=== PATIENT | female | born 1985 | race Caucasian/White ===

== ENCOUNTER 2016-10-28 04:16 | Emergency (ER) | payer OTHER ==
[2016-10-28 04:25] VITALS: TEMP 97.3
[2016-10-28] MEDS ORDERED: SUMAtriptan SUCCINATE 6 MG/0.5 ML VIAL SQ STA (04:41)
--- NOTE | 2016-10-28 04:44 | ED ---
General Adult HPI - General Chief complaint: Neuro Symptoms/Deficit Stated complaint: migraine Time Seen by Provider: 10/28/16 04:30 Source: patient, RN notes reviewed Mode of arrival: ambulatory Limitations: no limitations - History of Present Illness Initial comments: This is a 31-year-old female who presents with the onset about 24 hours ago of a severe frontal and green-type headache she has had these in the past he states is severe sternal aching and sharp she has photophobia with it she complains some nausea no vomiting at this time. She tried her home medication without success. She drove herself here for evaluation. She is pending a referral to a neurologist. She states the headache 7 more frequent over the past 2 months. She denies any fevers chills or sweats she did recently just quit smoking except she does admit to having 2 cigarettes today. No relationship to smoking of the headaches. No trauma reported no earache sore throat rhinorrhea no neck stiffness. No focal loss of function. She states she 's never tried Imitrex before. - Related Data Home Medications Medication Instructions Recorded Confirmed ALPRAZolam [Xanax] 0.5 mg PO QID PRN 03/31/14 10/28/16 ARIPiprazole [Abilify] 15 mg PO DAILY 08/01/14 10/28/16 Hydrocodone/Acetaminophen 1 tab PO QID PRN 08/13/14 10/28/16 [Hydrocodon-Acetaminoph 7.5-325] Omeprazole [PriLOSEC] 20 mg PO BID PRN 08/13/14 10/28/16 Topiramate [Topamax] 25 mg PO DAILY 10/26/15 10/28/16 Citalopram Hydrobromide [CeleXA] 30 mg PO DAILY 01/30/16 10/28/16 Cyclobenzaprine [Flexeril] 10 mg PO TID 07/01/16 10/28/16 Albuterol Inhaler [Ventolin Hfa 1 - 2 puff INHALATION RT-Q6H PRN 09/11/16 Inhaler] Albuterol Nebulized [Ventolin 2.5 mg INHALATION RT-Q6H PRN 09/11/16 10/28/16 Nebulized] Ibuprofen [Motrin] 800 mg PO TID PRN 09/12/16 10/28/16 diphenhydrAMINE HCL [Benadryl] 50 mg PO BID PRN 09/12/16 10/28/16 Previous Rx's Medication Instructions Recorded Butalb/Acetaminophen/Caffeine 1 - 2 cap PO Q4HR #15 cap 09/12/16 [Fioricet 50-300-40 mg Capsule] SUMAtriptan SUCCINATE [Imitrex] 25 mg PO ONCE PRN #4 tablet 10/28/16 Allergies Allergy/AdvReac Type Severity Reaction Status Date / Time bupropion HCl AdvReac Nausea & Verified 10/28/16 04:25 [From Wellbutrin] Vomiting prestique Allergy Confusion Uncoded 10/28/16 04:25 Review of Systems ROS Statement: Those systems with pertinent positive or pertinent negative responses have been documented in the HPI. ROS Other: All systems not noted in ROS Statement are negative. Past Medical History Past Medical History: Asthma Additional Past Medical History / Comment(s): OVARIAN CYSTS, migraines, back pain History of Any Multi-Drug Resistant Organisms: None Reported Past Surgical History: Section, Tubal Ligation Past Psychological History: Anxiety, Depression Smoking Status: Former smoker Past Alcohol Use History: None Reported Past Drug Use History: None Reported General Exam - General Exam Comments Initial Comments: This is a well-developed well-nourished awake alert oriented 3 female Limitations: no limitations General appearance: alert, in no apparent distress Head exam: Present: atraumatic, normocephalic, normal inspection Eye exam: Present: normal appearance, PERRL, EOMI. Absent: scleral icterus, conjunctival injection, periorbital swelling ENT exam: Present: normal exam, mucous membranes moist Neck exam: Present: normal inspection. Absent: tenderness, meningismus, lymphadenopathy Respiratory exam: Present: normal lung sounds bilaterally. Absent: respiratory distress, wheezes, rales, rhonchi, stridor Cardiovascular Exam: Present: regular rate, normal rhythm, normal heart sounds. Absent: systolic murmur, diastolic murmur, rubs, gallop, clicks GI/Abdominal exam: Present: soft, normal bowel sounds. Absent: distended, tenderness, guarding, rebound, rigid Extremities exam: Present: normal inspection, full ROM, normal capillary refill. Absent: tenderness, pedal edema, joint swelling, calf tenderness Back exam: Present: normal inspection Neurological exam: Present: alert, oriented X3, CN II-XII intact Psychiatric exam: Present: normal affect, normal mood Skin exam: Present: warm, dry, intact, normal color. Absent: rash Course Vital Signs 10/28/16 04:21 Temperature 97.3 F L Pulse Rate 98 Respiratory 18 Rate Blood Pressure 140/84 O2 Sat by Pulse 99 Oximetry Medical Decision Making - Medical Decision Making The patient initially much improved with almost complete resolution of her headache. She would like to go home she'll be discharged I will start her on a prescription for Imitrex. She is a follow-up with her doctor and return when necessary Disposition Clinical Impression: Migraine, Headache Disposition: HOME SELF-CARE Condition: Good Instructions: Migraine Headache (ED) Prescriptions: SUMAtriptan SUCCINATE [Imitrex] 25 mg PO ONCE PRN #4 tablet PRN Reason: Headache
[2016-10-28 06:07] VITALS: BP 130/80; PULSE 70; RESP 16
== END 2016-10-28 06:03 | disposition home or self-care (01) ==
LOC: EC 04:16
DX: G43.909 Migraine, unspecified, not intractable, without status migrainosus (principal); F41.9 Anxiety disorder, unspecified; F32.9 Major depressive disorder, single episode, unspecified; Z87.891 Personal history of nicotine dependence; Z79.899 Other long term (current) drug therapy; Z88.8 Allergy status to other drugs, medicaments and biological substances
CPT/HCPCS: 99283; J3030

== ENCOUNTER 2016-11-14 13:40 | Emergency (ER) | payer OTHER ==
[2016-11-14] MEDS ORDERED: SODIUM CHLORIDE 0.9% 1,000 ML IV STA (15:30)
[2016-11-14] MEDS ORDERED: diphenhydrAMINE 50 MG/ML 1 ML VIAL IVP STA (15:30)
[2016-11-14] MEDS ORDERED: METOCLOPRAMIDE 5 MG/ML 2 ML VIAL IVP STA (15:30)
--- NOTE | 2016-11-14 15:33 | ED ---
Headache HPI - General Chief Complaint: Headache Stated Complaint: migraines Time Seen by Provider: 11/14/16 15:18 Source: RN notes reviewed Mode of arrival: ambulatory Limitations: no limitations - History of Present Illness Initial Comments: 31-year-old female presents to the emergency Department chief complaint of headache. Patient has a long history of migraines and been having migraines for the past 6 months more frequently but has had to light. Patient states she' s been on all the different migraine medications do not seem to be helping. Patient states that she currently has no pain with a neurologist to further evaluate headaches. Patient states she has had nausea with the headache. Patient states that she took her medications might help with the headache come back. Patient states the throbbing type pain. Patient stated understanding headache. Patient states that no other symptoms or no change in her symptoms. Patient denies any recent fever, chills, shortness of breath, chest pain, back pain, abdominal pain, nausea vomiting, numbness or tingling, dysuria or hematuria, constipation or diarrhea, visual changes, or any other current symptoms. - Related Data Home Medications Medication Instructions Recorded Confirmed ALPRAZolam [Xanax] 0.5 mg PO QID PRN 03/31/14 11/14/16 ARIPiprazole [Abilify] 15 mg PO DAILY 08/01/14 11/14/16 Hydrocodone/Acetaminophen 1 tab PO QID PRN 08/13/14 11/14/16 [Hydrocodon-Acetaminoph 7.5-325] Omeprazole [PriLOSEC] 20 mg PO BID PRN 08/13/14 11/14/16 Topiramate [Topamax] 25 mg PO DAILY 10/26/15 11/14/16 Citalopram Hydrobromide [CeleXA] 30 mg PO DAILY 01/30/16 11/14/16 Cyclobenzaprine [Flexeril] 10 mg PO TID PRN 07/01/16 11/14/16 Albuterol Inhaler [Ventolin Hfa 2 puff INHALATION RT-Q6H PRN 09/11/16 11/14/16 Inhaler] Albuterol Nebulized [Ventolin 2.5 mg INHALATION RT-Q6H PRN 09/11/16 11/14/16 Nebulized] Ibuprofen [Motrin] 800 mg PO TID PRN 09/12/16 11/14/16 diphenhydrAMINE HCL [Benadryl] 50 mg PO BID PRN 09/12/16 11/14/16 SUMAtriptan SUCCINATE [Imitrex] 25 mg PO BID PRN 11/14/16 11/14/16 Allergies Allergy/AdvReac Type Severity Reaction Status Date / Time bupropion HCl AdvReac Nausea & Verified 11/14/16 15:46 [From Wellbutrin] Vomiting desvenlafaxine [From Pristiq] AdvReac Confusion Verified 11/14/16 15:46 Review of Systems ROS Statement: Those systems with pertinent positive or pertinent negative responses have been documented in the HPI. ROS Other: All systems not noted in ROS Statement are negative. Past Medical History Past Medical History: Asthma Additional Past Medical History / Comment(s): OVARIAN CYSTS, migraines, back pain History of Any Multi-Drug Resistant Organisms: None Reported Past Surgical History: Section, Tubal Ligation Past Psychological History: Anxiety, Depression Smoking Status: Former smoker Past Alcohol Use History: None Reported Past Drug Use History: None Reported General Exam - General Exam Comments Initial Comments: General: The patient is awake and alert, in no distress, and does not appear acutely ill. Eye: Pupils are equal, round and reactive to light, extra-ocular movements are intact; there is normal conjunctiva bilaterally. No signs of icterus. Ears, nose, mouth and throat: There are moist mucous membranes and no oral lesions. Neck: The neck is supple, there is no tenderness. Cardiovascular: There is a regular rate and rhythm. No murmur, rub or gallop is appreciated. Respiratory: Lungs are clear to auscultation, respirations are non-labored, breath sounds are equal. No wheezes, stridor, rales, or rhonchi. Gastrointestinal: Soft, non-distended, non-tender abdomen without masses or organomegaly noted. There is no rebound or guarding present. No CVA tenderness. Bowel sounds are unremarkable. Back: There is no tenderness to palpation in the midline. There is no obvious deformity. No rashes noted. Musculoskeletal: Normal ROM, no tenderness, There is no pedal edema. There is no calf tenderness or swelling. Sensation intact. Pulses equal bilaterally 2+. Neurological: CN II-XII intact, There are no obvious motor or sensory deficits. Coordination appears grossly intact. Speech is normal. Skin: Skin is warm and dry and no rashes or lesions are noted. Psychiatric: Cooperative, appropriate mood & affect, normal judgment. Limitations: no limitations Course Vital Signs 11/14/16 14:30 Temperature 98.2 F Pulse Rate 89 Respiratory 18 Rate Blood Pressure 123/79 O2 Sat by Pulse 98 Oximetry - Reevaluation(s) Reevaluation #1: 11/14/16 17:12 Patient states that she is feeling better at this time. Patient states she does feel comfortable going home. Medical Decision Making - Medical Decision Making 31-year-old female presents emergency Department chief complaint of headache. Patient has a long history of headaches. Patient's previous studies were reviewed with do show a normal CT in the patient's past. This time we discussed continued follow-up with neurology. We did give her medication here that did help with headache. We discussed continuing to use her home medications. We discussed return parameters. Patient states that she understood all the questions have been answered. She will be discharged home. Disposition Clinical Impression: Headache Disposition: HOME SELF-CARE Condition: Stable Instructions: Acute Headache (ED) Additional Instructions: Please use medication as discussed. Please follow up with family doctor if symptoms have not improved over the next two days. Please return to the emergency room if your symptoms increase or worsen or for any other concerns. Referrals: Breanna Mcguire MD [Primary Care Provider] - 1-2 days
[2016-11-14] MEDS ORDERED: KETOROLAC 30 MG/ML 1 ML VIAL IVP STA (16:26)
[2016-11-14 17:31] VITALS: BP 110/70; PULSE 80; RESP 16; TEMP 98
== END 2016-11-14 17:35 | disposition home or self-care (01) ==
LOC: EC 13:40
DX: R51 Headache (principal); F32.9 Major depressive disorder, single episode, unspecified; F41.9 Anxiety disorder, unspecified; Z87.891 Personal history of nicotine dependence; Z88.8 Allergy status to other drugs, medicaments and biological substances; Z79.899 Other long term (current) drug therapy; Z86.69 Personal history of other diseases of the nervous system and sense organs
CPT/HCPCS: 99283; 96374; 96375 ×2; 96361; J1200; J2765; J1885

== ENCOUNTER → 2017-01-03 | Outpatient (CLI) | payer OTHER ==
[2017-01-03 08:56] LABS: Basophils # (A) 0.1 k/uL (0-0.2); Basophils % (A) 1 %; CH 29.6; CHCM 33.3; Eosinophils # (A) 0.3 k/uL (0-0.7); Eosinophils % (A) 3 %; HCT 40.6 % (34.0-46.0); HDW 2.74; HGB 13.8 gm/dL (11.4-16.0); Luc # (Auto) 0.32; Luc % (Auto) 3; Lymphocytes # (A) 4.4 k/uL (1.0-4.8); Lymphocytes % (A) 41 %; MCH 30.3 pg (25.0-35.0); MCHC 33.9 g/dL (31.0-37.0); MCV 89.4 fL (80.0-100.0); Mean Platelet Volume 7.7; Monocytes # (A) 0.6 k/uL (0-1.0); Monocytes % (A) 6 %; Neutrophils # (A) 4.9 k/uL (1.3-7.7); Neutrophils % (A) 46 %; RBC 4.55 m/uL (3.80-5.40); RDW 12.6 % (11.5-15.5); WBC 10.6 k/uL (3.8-10.6); WBC (Perox) 10.64
[2017-01-03 12:20] LABS: ALT 29 U/L (9-52); AST 19 U/L (14-36); Alkaline Phosphatase 71 U/L (38-126); Anion Gap 11 mmol/L; Blood Urea Nitrogen 11 mg/dL (7-17); Calcium 9.6 mg/dL (8.4-10.2); Carbon Dioxide 27 mmol/L (22-30); Chloride 102 mmol/L (98-107); Glucose 83 mg/dL (74-99); Iron 46 ug/dL (37-170); Non-African American GFR(MDRD) >60 (>60 ml/min/1.73 sqM); Potassium 4.1 mmol/L (3.5-5.1); Sodium 140 mmol/L (137-145); Total Bilirubin 0.7 mg/dL (0.2-1.3); Total Protein 7.2 g/dL (6.3-8.2)
[2017-01-03 12:31] LABS: % Iron Saturation 14.6 % (20-50); Total Iron Binding Capacity 314 ug/dL (265-497)
[2017-01-03 13:10] LABS: Vitamin B12 257 pg/mL (239-931)
== END | disposition home or self-care (01) ==
LOC: LABWHC1 08:15
PROVIDERS: ATTEND Internal Medicine
DX: R53.83 Other fatigue (principal); R51 Headache; F41.9 Anxiety disorder, unspecified; R63.5 Abnormal weight gain
CPT/HCPCS: 36415; 80053; 82306; 82607; 83540; 83550; 84439; 84443; 84481; 85025

== ENCOUNTER 2017-04-11 09:36 | Emergency (ER) | payer OTHER ==
[2017-04-11 09:42] VITALS: TEMP 98.1
--- NOTE | 2017-04-11 09:58 | ED ---
General Adult HPI - General Chief complaint: Headache Stated complaint: migraine Time Seen by Provider: 04/11/17 09:43 Source: patient, RN notes reviewed Mode of arrival: ambulatory Limitations: no limitations - History of Present Illness Initial comments: 31-year-old female who presents emergency room today with a chief complaint of migraine headache. She states she usually takes Imitrex for her headaches but she currently is in between insurance and has been unable to order picker her prescription. She states when she woke up this morning shortly thereafter proxy 5:30 AM she began having migraine headache" located to the right side of her head. Admits to photosensitivity. Admits to symptoms of nausea vomiting. States all symptoms are consistent with migraine headaches that she's had in the past. She denies any new symptoms or complaints. Patient denies any recent fever, chills, shortness of breath, chest pain, back pain, abdominal pain, nausea or vomiting, numbness or tingling, dysuria or hematuria, constipation or diarrhea, headaches or visual changes, or any other complaints. - Related Data Home Medications Medication Instructions Recorded Confirmed ALPRAZolam [Xanax] 0.5 mg PO QID PRN 03/31/14 11/14/16 ARIPiprazole [Abilify] 15 mg PO DAILY 08/01/14 11/14/16 Hydrocodone/Acetaminophen 1 tab PO QID PRN 08/13/14 11/14/16 [Hydrocodon-Acetaminoph 7.5-325] Omeprazole [PriLOSEC] 20 mg PO BID PRN 08/13/14 11/14/16 Topiramate [Topamax] 25 mg PO DAILY 10/26/15 11/14/16 Citalopram Hydrobromide [CeleXA] 30 mg PO DAILY 01/30/16 11/14/16 Cyclobenzaprine [Flexeril] 10 mg PO TID PRN 07/01/16 11/14/16 Albuterol Inhaler [Ventolin Hfa 2 puff INHALATION RT-Q6H PRN 09/11/16 11/14/16 Inhaler] Albuterol Nebulized [Ventolin 2.5 mg INHALATION RT-Q6H PRN 09/11/16 11/14/16 Nebulized] Ibuprofen [Motrin] 800 mg PO TID PRN 09/12/16 11/14/16 diphenhydrAMINE HCL [Benadryl] 50 mg PO BID PRN 09/12/16 11/14/16 SUMAtriptan SUCCINATE [Imitrex] 25 mg PO BID PRN 11/14/16 11/14/16 Previous Rx's Medication Instructions Recorded Ondansetron Odt [Zofran ODT] 4 mg PO Q8HR PRN #20 tab 04/11/17 Allergies Allergy/AdvReac Type Severity Reaction Status Date / Time bupropion HCl AdvReac Nausea & Verified 04/11/17 09:42 [From Wellbutrin] Vomiting desvenlafaxine [From Pristiq] AdvReac Confusion Verified 04/11/17 09:42 Review of Systems ROS Statement: Those systems with pertinent positive or pertinent negative responses have been documented in the HPI. ROS Other: All systems not noted in ROS Statement are negative. Past Medical History Past Medical History: Asthma Additional Past Medical History / Comment(s): OVARIAN CYSTS, migraines, back pain History of Any Multi-Drug Resistant Organisms: None Reported Past Surgical History: Section, Tubal Ligation Past Psychological History: Anxiety, Depression Smoking Status: Light tobacco smoker Past Alcohol Use History: None Reported Past Drug Use History: None Reported General Exam - General Exam Comments Initial Comments: General: The patient is awake and alert, in no distress, and does not appear acutely ill. Eye: Pupils are equal, round and reactive to light, extra-ocular movements are intact. No nystagmus. There is normal conjunctiva bilaterally. No signs of icterus. Ears, nose, mouth and throat: There are moist mucous membranes and no oral lesions. Neck: The neck is supple, there is no tenderness or JVD. Cardiovascular: There is a regular rate and rhythm. No murmur, rub or gallop is appreciated. Respiratory: Lungs are clear to auscultation, respirations are non-labored, breath sounds are equal. No wheezes, stridor, rales, or rhonchi. Gastrointestinal: Soft, non-distended, non-tender abdomen without masses or organomegaly noted. There is no rebound or guarding present. No CVA tenderness. Bowel sounds are unremarkable. Musculoskeletal: Normal ROM, no tenderness. Strength 5/5. Sensation intact. Pulses equal bilaterally 2+. Neurological: A&O x 3. CN II-XII intact, There are no obvious motor or sensory deficits. Coordination appears grossly intact. Speech is normal. Skin: Skin is warm and dry and no rashes or lesions are noted. Psychiatric: Cooperative, appropriate mood & affect, normal judgment. Limitations: no limitations Course Vital Signs 04/11/17 09:39 Temperature 98.1 F Pulse Rate 82 Respiratory 15 Rate Blood Pressure 132/72 O2 Sat by Pulse 98 Oximetry Medical Decision Making - Medical Decision Making Treatment options discussed with patient about possible IV versus oral medication. She states that Imitrex usually works well for her. She'll be given a dose here in the emergency room discharged home advised to order picker her prescription when she can. Advised return if symptoms increase or worsen or for any other concerns. She states understanding and is in agreement. Disposition Clinical Impression: Migraine Disposition: HOME SELF-CARE Condition: Good Instructions: Migraine Headache (ED) Additional Instructions: Please use medication as discussed. Please follow-up with family doctor in the next 2 days of symptoms have not improved. Please return to emergency room if the symptoms increase or worsen or for any other concerns. Prescriptions: Ondansetron Odt [Zofran ODT] 4 mg PO Q8HR PRN #20 tab PRN Reason: Nausea Referrals: Breanna Mcguire MD [Primary Care Provider] - 1-2 days Time of Disposition: 09:57
[2017-04-11] MEDS: KETOROLAC 60 MG/2 ML VIAL IM STA (10:03)
[2017-04-11] MEDS: ONDANSETRON ODT 4 MG TAB PO STA (10:03)
[2017-04-11] MEDS: SUMAtriptan SUCCINATE 50 MG TAB PO STA (10:12)
[2017-04-11 10:15] VITALS: BP 122/82; PULSE 92; RESP 16
== END 2017-04-11 10:14 | disposition home or self-care (01) ==
LOC: EC 09:36
DX: G43.909 Migraine, unspecified, not intractable, without status migrainosus (principal); F32.9 Major depressive disorder, single episode, unspecified; F17.200 Nicotine dependence, unspecified, uncomplicated; Z88.8 Allergy status to other drugs, medicaments and biological substances
CPT/HCPCS: 99283; 96372; J1885

== ENCOUNTER 2017-04-13 14:40 | Emergency (ER) | payer OTHER ==
[2017-04-13 14:52] VITALS: BP 144/80; PULSE 99; RESP 18; TEMP 98.1
--- NOTE | 2017-04-13 15:36 | ED ---
Lower Extremity Injury HPI - General Chief Complaint: Extremity Injury, Lower Stated Complaint: L foot injury Time Seen by Provider: 04/13/17 14:47 Source: patient, RN notes reviewed Mode of arrival: ambulatory Limitations: no limitations - History of Present Illness Initial Comments: 31-year-old female presents emergency Department chief complaint of left foot pain. Patient states the bottom of her foot is causing her some discomfort. Patient states walking seems to make it worse. Patient states she has not had any other complaints at this. Patient states that any falls or traumas or injuries. Patient states that she was concerned due to her pain so she thought that she should be evaluated. Patient denies any recent fever, chills, shortness of breath, chest pain, back pain, abdominal pain, nausea vomiting, numbness or tingling, dysuria or hematuria, constipation or diarrhea, headaches or visual changes, or any other current symptoms. - Related Data Home Medications Medication Instructions Recorded Confirmed ALPRAZolam [Xanax] 0.5 mg PO QID PRN 03/31/14 04/13/17 ARIPiprazole [Abilify] 15 mg PO DAILY 08/01/14 04/13/17 Hydrocodone/Acetaminophen 1 tab PO QID PRN 08/13/14 04/13/17 [Hydrocodon-Acetaminoph 7.5-325] Omeprazole [PriLOSEC] 20 mg PO BID PRN 08/13/14 04/13/17 Topiramate [Topamax] 25 mg PO DAILY 10/26/15 04/13/17 Citalopram Hydrobromide [CeleXA] 30 mg PO DAILY 01/30/16 04/13/17 Cyclobenzaprine [Flexeril] 10 mg PO TID PRN 07/01/16 04/13/17 Albuterol Inhaler [Ventolin Hfa 2 puff INHALATION RT-Q6H PRN 09/11/16 04/13/17 Inhaler] Albuterol Nebulized [Ventolin 2.5 mg INHALATION RT-Q6H PRN 09/11/16 04/13/17 Nebulized] Ibuprofen [Motrin] 800 mg PO TID PRN 09/12/16 04/13/17 diphenhydrAMINE HCL [Benadryl] 50 mg PO BID PRN 11/16/16 06/17/17 SUMAtriptan SUCCINATE [Imitrex] 25 mg PO BID PRN 11/14/16 04/13/17 Previous Rx's Medication Instructions Recorded Ondansetron Odt [Zofran ODT] 4 mg PO Q8HR PRN #20 tab 04/11/17 Ibuprofen [Motrin] 600 mg PO Q6HR PRN #20 tab 04/13/17 Allergies Allergy/AdvReac Type Severity Reaction Status Date / Time bupropion HCl AdvReac Nausea & Verified 04/13/17 15:05 [From Wellbutrin] Vomiting desvenlafaxine [From Pristiq] AdvReac Confusion Verified 04/13/17 15:05 Review of Systems ROS Statement: Those systems with pertinent positive or pertinent negative responses have been documented in the HPI. ROS Other: All systems not noted in ROS Statement are negative. Past Medical History Past Medical History: Asthma Additional Past Medical History / Comment(s): OVARIAN CYSTS, migraines, back pain History of Any Multi-Drug Resistant Organisms: None Reported Past Surgical History: Section, Tubal Ligation Past Psychological History: Anxiety, Bipolar, Depression Smoking Status: Light tobacco smoker Past Alcohol Use History: None Reported Past Drug Use History: None Reported General Exam - General Exam Comments Initial Comments: General: The patient is awake and alert, in no distress, and does not appear acutely ill. Neck: The neck is supple, there is no tenderness. Cardiovascular: There is a regular rate and rhythm. No murmur, rub or gallop is appreciated. Respiratory: Lungs are clear to auscultation, respirations are non-labored, breath sounds are equal. No wheezes, stridor, rales, or rhonchi. Musculoskeletal:sensation intact with 2+ pulses. Lower extremity. Full range motion of left ankle and left foot. Patient does have some tenderness over the arch of the left foot. There is full range of motion. No deformity no ecchymosis. Neurological: CN II-XII intact, There are no obvious motor or sensory deficits. Coordination appears grossly intact. Speech is normal. Skin: Skin is warm and dry and no rashes or lesions are noted. Psychiatric: Normal mood and affect. Limitations: no limitations Course Vital Signs 04/13/17 14:49 Temperature 98.1 F Pulse Rate 99 Respiratory 18 Rate Blood Pressure 144/80 O2 Sat by Pulse 100 Oximetry Medical Decision Making - Medical Decision Making 31-year-old female presents emergency Department chief complaint of left foot pain. At this time patient does appear to have plantar fasciitis. palced Patient on Motrin. We discussed ice. We discussed return parameters. We discussed outpatient family's questions. He stated the Lee they're in agreement with plan. They will be discharged home. - Radiology Data Radiology results: report reviewed, image reviewed Disposition Clinical Impression: Plantar fasciitis of left foot Disposition: HOME SELF-CARE Condition: Stable Instructions: Plantar Fasciitis (ED) Additional Instructions: Please use medication as discussed. Please follow up with family doctor if symptoms have not improved over the next two days. Please return to the emergency room if your symptoms increase or worsen or for any other concerns. Prescriptions: Ibuprofen [Motrin] 600 mg PO Q6HR PRN #20 tab PRN Reason: Pain Referrals: Breanna Mcguire MD [Primary Care Provider] - 1-2 days Time of Disposition: 15:44
[2017-04-13] MEDS ORDERED: KETOROLAC 60 MG/2 ML VIAL IM STA (15:37)
--- NOTE | 2017-04-13 15:42 | XR ---
EXAMINATION TYPE: XR foot complete LT DATE OF EXAM: 04/13/2017 COMPARISON: NONE HISTORY: Foot pain TECHNIQUE: 3 views FINDINGS: I see no fracture nor dislocation. Metatarsals are intact. Joint spaces are normal. IMPRESSION: Negative left foot exam.
== END 2017-04-13 15:48 | disposition home or self-care (01) ==
LOC: EC 14:40
DX: M72.2 Plantar fascial fibromatosis (principal); F31.9 Bipolar disorder, unspecified; F17.200 Nicotine dependence, unspecified, uncomplicated; Z88.8 Allergy status to other drugs, medicaments and biological substances; Z79.899 Other long term (current) drug therapy
CPT/HCPCS: 99283; 96372; 73630; J1885

== ENCOUNTER 2017-04-26 00:05 | Emergency (ER) | payer OTHER ==
[2017-04-26 00:13] VITALS: BP 165/84; PULSE 90; RESP 20; TEMP 98.7
--- NOTE | 2017-04-26 00:39 | ED ---
General Adult HPI - General Chief complaint: Extremity Problem,Nontraumatic Stated complaint: Foot Pain Time Seen by Provider: 04/26/17 00:23 Source: patient, RN notes reviewed, old records reviewed Mode of arrival: ambulatory Limitations: no limitations - History of Present Illness Initial comments: There are this is a 31-year-old female here for recheck of plantar fasciitis. No improvement with Motrin and home remedies. He started having left leg pain. Worse when she ambulates, no new injuries - Related Data Home Medications Medication Instructions Recorded Confirmed ALPRAZolam [Xanax] 0.5 mg PO QID PRN 03/31/14 04/13/17 ARIPiprazole [Abilify] 15 mg PO DAILY 08/01/14 04/13/17 Hydrocodone/Acetaminophen 1 tab PO QID PRN 08/13/14 04/13/17 [Hydrocodon-Acetaminoph 7.5-325] Omeprazole [PriLOSEC] 20 mg PO BID PRN 08/13/14 04/13/17 Topiramate [Topamax] 25 mg PO DAILY 10/26/15 04/13/17 Citalopram Hydrobromide [CeleXA] 30 mg PO DAILY 01/30/16 04/13/17 Cyclobenzaprine [Flexeril] 10 mg PO TID PRN 07/01/16 04/13/17 Albuterol Inhaler [Ventolin Hfa 2 puff INHALATION RT-Q6H PRN 09/11/16 04/13/17 Inhaler] Albuterol Nebulized [Ventolin 2.5 mg INHALATION RT-Q6H PRN 09/11/16 04/13/17 Nebulized] Ibuprofen [Motrin] 800 mg PO TID PRN 09/12/16 04/13/17 diphenhydrAMINE HCL [Benadryl] 50 mg PO BID PRN 09/12/16 04/13/17 SUMAtriptan SUCCINATE [Imitrex] 25 mg PO BID PRN 11/14/16 04/13/17 Previous Rx's Medication Instructions Recorded Ondansetron Odt [Zofran ODT] 4 mg PO Q8HR PRN #20 tab 04/11/17 Ibuprofen [Motrin] 600 mg PO Q6HR PRN #20 tab 04/13/17 Naproxen [Naprosyn] 500 mg PO Q12HR #30 tab 04/26/17 methylPREDNISolone Dose Pack 4 mg PO DIRECTED #21 package 04/26/17 [Medrol Dose Pack] traMADol HCL [Ultram] 50 mg PO Q6HR PRN #30 tab 04/26/17 Allergies Allergy/AdvReac Type Severity Reaction Status Date / Time bupropion HCl AdvReac Nausea & Verified 04/26/17 00:13 [From Wellbutrin] Vomiting desvenlafaxine [From Pristiq] AdvReac Confusion Verified 04/26/17 00:13 Review of Systems ROS Statement: Those systems with pertinent positive or pertinent negative responses have been documented in the HPI. ROS Other: All systems not noted in ROS Statement are negative. Past Medical History Past Medical History: Asthma Additional Past Medical History / Comment(s): OVARIAN CYSTS, migraines, back pain History of Any Multi-Drug Resistant Organisms: None Reported Past Surgical History: Section, Tubal Ligation Past Psychological History: Anxiety, Bipolar, Depression Smoking Status: Light tobacco smoker Past Alcohol Use History: None Reported Past Drug Use History: None Reported General Exam Limitations: no limitations General appearance: alert, in no apparent distress Head exam: Present: atraumatic, normocephalic, normal inspection Eye exam: Present: normal appearance, PERRL, EOMI. Absent: scleral icterus, conjunctival injection, periorbital swelling ENT exam: Present: normal exam, mucous membranes moist Neck exam: Present: normal inspection. Absent: tenderness, meningismus, lymphadenopathy Respiratory exam: Present: normal lung sounds bilaterally. Absent: respiratory distress, wheezes, rales, rhonchi, stridor Cardiovascular Exam: Present: regular rate, normal rhythm, normal heart sounds. Absent: systolic murmur, diastolic murmur, rubs, gallop, clicks GI/Abdominal exam: Present: soft, normal bowel sounds. Absent: distended, tenderness, guarding, rebound, rigid Extremities exam: Present: normal inspection, full ROM, normal capillary refill. Absent: tenderness, pedal edema, joint swelling, calf tenderness Back exam: Present: normal inspection Neurological exam: Present: alert, oriented X3, CN II-XII intact Psychiatric exam: Present: normal affect, normal mood Skin exam: Present: warm, dry, intact, normal color. Absent: rash Course Vital Signs 04/26/17 00:11 Temperature 98.7 F Pulse Rate 90 Respiratory 20 Rate Blood Pressure 165/84 O2 Sat by Pulse 100 Oximetry - Reevaluation(s) Reevaluation #1: 04/26/17 00:38 Patient will continue to take her [facility] Decision Making - Medical Decision Making 31 female here for evaluation of leg pain, foot pain left foot pain left foot Plantar fasciitis. Patient given medication for discharge. Encouraged to follow up with her pain doctor Disposition Clinical Impression: Plantar fasciitis of left foot Disposition: HOME SELF-CARE Condition: Good Instructions: Plantar Fasciitis (ED) Prescriptions: methylPREDNISolone Dose Pack [Medrol Dose Pack] 4 mg PO DIRECTED #21 package Naproxen [Naprosyn] 500 mg PO Q12HR #30 tab traMADol HCL [Ultram] 50 mg PO Q6HR PRN #30 tab PRN Reason: Pain Referrals: Breanna Mcguire MD [Primary Care Provider] - 1-2 days
== END 2017-04-26 00:57 | disposition home or self-care (01) ==
LOC: EC 00:05
DX: M72.2 Plantar fascial fibromatosis (principal); F31.9 Bipolar disorder, unspecified; F17.200 Nicotine dependence, unspecified, uncomplicated; Z88.8 Allergy status to other drugs, medicaments and biological substances; Z79.899 Other long term (current) drug therapy
CPT/HCPCS: 99283

== ENCOUNTER 2017-05-16 22:11 | Emergency (ER) | payer OTHER ==
[2017-05-16 22:31] VITALS: BP 121/71; PULSE 88; RESP 18; TEMP 98
[2017-05-16] MEDS ORDERED: ONDANSETRON ODT 4 MG TAB PO STA (22:50)
[2017-05-16] MEDS ORDERED: SUMAtriptan SUCCINATE 6 MG/0.5 ML VIAL SQ STA (22:50)
--- NOTE | 2017-05-16 22:56 | ED ---
General Adult HPI - General Chief complaint: Headache Stated complaint: migraine Time Seen by Provider: 05/16/17 22:20 Source: patient, RN notes reviewed Mode of arrival: ambulatory Limitations: no limitations - History of Present Illness Initial comments: This is a 31-year-old female comes in stating she has a migraine headache again. Patient states she gets them quite regularly but she ran out of her Imitrex. Patient states headache is a 6 out of 10 in her symptoms are the same as they always are. Patient states she is a little nauseated as well which is typical. Patient states she only wants a shot of Imitrex because she can't anything heavier because she is driving. Patient denies any vomiting at this point. Patient denies any blurred vision she does states she is a little sensitive to light. Patient states the headache is on the size it's more upfront. Patient states it started yesterday and hasn't gotten any better so she decided come to the emergency department before got worse. Patient denies any numbness or weakness. Patient denies any chest pain. Patient denies any neck pain. Patient denies any fever chills or cough. - Related Data Home Medications Medication Instructions Recorded Confirmed ALPRAZolam [Xanax] 0.5 mg PO QID PRN 03/31/14 04/13/17 ARIPiprazole [Abilify] 15 mg PO DAILY 08/01/14 04/13/17 Hydrocodone/Acetaminophen 1 tab PO QID PRN 08/13/14 04/13/17 [Hydrocodon-Acetaminoph 7.5-325] Omeprazole [PriLOSEC] 20 mg PO BID PRN 08/13/14 04/13/17 Topiramate [Topamax] 25 mg PO DAILY 10/26/15 04/13/17 Citalopram Hydrobromide [CeleXA] 30 mg PO DAILY 01/30/16 04/13/17 Cyclobenzaprine [Flexeril] 10 mg PO TID PRN 07/01/16 04/13/17 Albuterol Inhaler [Ventolin Hfa 2 puff INHALATION RT-Q6H PRN 09/11/16 04/13/17 Inhaler] Albuterol Nebulized [Ventolin 2.5 mg INHALATION RT-Q6H PRN 09/11/16 04/13/17 Nebulized] Ibuprofen [Motrin] 800 mg PO TID PRN 09/12/16 04/13/17 diphenhydrAMINE HCL [Benadryl] 50 mg PO BID PRN 09/12/16 04/13/17 SUMAtriptan SUCCINATE [Imitrex] 25 mg PO BID PRN 11/14/16 04/13/17 Previous Rx's Medication Instructions Recorded Ondansetron Odt [Zofran ODT] 4 mg PO Q8HR PRN #20 tab 04/11/17 Ibuprofen [Motrin] 600 mg PO Q6HR PRN #20 tab 04/13/17 Naproxen [Naprosyn] 500 mg PO Q12HR #30 tab 04/26/17 methylPREDNISolone Dose Pack 4 mg PO DIRECTED #21 package 04/26/17 [Medrol Dose Pack] traMADol HCL [Ultram] 50 mg PO Q6HR PRN #30 tab 04/26/17 Allergies Allergy/AdvReac Type Severity Reaction Status Date / Time bupropion HCl AdvReac Nausea & Verified 05/16/17 22:31 [From Wellbutrin] Vomiting desvenlafaxine [From Pristiq] AdvReac Confusion Verified 05/16/17 22:31 Review of Systems ROS Statement: Those systems with pertinent positive or pertinent negative responses have been documented in the HPI. ROS Other: All systems not noted in ROS Statement are negative. Past Medical History Past Medical History: Asthma Additional Past Medical History / Comment(s): OVARIAN CYSTS, migraines, back pain History of Any Multi-Drug Resistant Organisms: None Reported Past Surgical History: Section, Tubal Ligation Past Psychological History: Anxiety, Bipolar, Depression Smoking Status: Light tobacco smoker Past Alcohol Use History: None Reported Past Drug Use History: None Reported General Exam - General Exam Comments Initial Comments: GENERAL: Patient is well-developed and well-nourished. Patient is nontoxic and well- hydrated and is in mild distress. ENT: Neck is soft and supple. No significant lymphadenopathy is noted. Oropharynx is clear. Moist mucous membranes. Neck has full range of motion without eliciting any pain. EYES: The sclera were anicteric and conjunctiva were pink and moist. Extraocular movements were intact and pupils were equal round and reactive to light. Eyelids were unremarkable. PULMONARY: Unlabored respirations. Good breath sounds bilaterally. No audible rales rhonchi or wheezing was noted. CARDIOVASCULAR: There is a regular rate and rhythm without any murmurs gallops or rubs. ABDOMEN: Soft and nontender with normal bowel sounds. No palpable organomegaly was noted. There is no palpable pulsatile mass. SKIN: Skin is clear with no lesions or rashes and otherwise unremarkable. NEUROLOGIC: Patient is alert and oriented x3. Cranial nerves II through XII are grossly intact. Motor and sensory are also intact. Normal speech, volume and content. Symmetrical smile. MUSCULOSKELETAL: Normal extremities with adequate strength and full range of motion. LYMPHATICS: No significant lymphadenopathy is noted PSYCHIATRIC: Normal psychiatric evaluation. Normal interpersonal interactions appears functionally intact in deals appropriately with others. No signs of depression. Limitations: no limitations Course Vital Signs 05/16/17 22:29 Temperature 98.0 F Pulse Rate 88 Respiratory 18 Rate Blood Pressure 121/71 O2 Sat by Pulse 99 Oximetry Disposition Clinical Impression: Migraine Disposition: HOME SELF-CARE Condition: Good Instructions: Migraine Headache (ED) Referrals: Breanna Mcguire MD [Primary Care Provider] - 1-2 days Time of Disposition: 22:56
== END 2017-05-16 23:19 | disposition home or self-care (01) ==
LOC: EC 22:11
DX: G43.909 Migraine, unspecified, not intractable, without status migrainosus (principal); R11.0 Nausea; F31.9 Bipolar disorder, unspecified; F17.200 Nicotine dependence, unspecified, uncomplicated; Z79.899 Other long term (current) drug therapy; Z88.8 Allergy status to other drugs, medicaments and biological substances
CPT/HCPCS: 99283; 96372; J3030

== ENCOUNTER → 2018-01-07 | Outpatient (CLI) | payer OTHER ==
--- NOTE | 2018-01-08 11:52 | MR ---
EXAMINATION TYPE: MR brain wo con DATE OF EXAM: 01/07/2018 5:09 PM COMPARISON: NONE HISTORY: Migraines Multiplanar and multispin-echo imaging of the brain was performed . The ventricles, basal cisterns and sulci overlying the cerebral convexities are within normal limits. There is no evidence for midline shift or mass effect. Acute intracranial hemorrhage or extra-axial collection is not evident. The brain parenchyma reveals no abnormal increased signal. No acute edema is identified. The paranasal sinuses and mastoid air cells are well-aerated. IMPRESSION: Unremarkable MRI of the brain.
== END | disposition home or self-care (01) ==
LOC: RADMRIMAIN 16:39
PROVIDERS: ATTEND Psychiatry & Neurology Neurology
DX: G43.009 Migraine without aura, not intractable, without status migrainosus (principal)
CPT/HCPCS: 70551

== ENCOUNTER → 2018-03-20 | Outpatient (CLI) | payer OTHER ==
--- NOTE | 2018-03-20 23:08 | MR ---
EXAMINATION TYPE: MR lumbar spine wo con DATE OF EXAM: 03/20/2018 COMPARISON: NONE HISTORY: Low back pain x 7 years TECHNIQUE: Multiplanar, multisequence images of the lumbar spine were acquired. Lumbar vertebra have normal spacing and alignment. Neural foramina appear widely patent. The posterio r elements appear intact. There is no compression fracture. Lumbar nerve roots appear normal. There i s no paraspinal mass. I see no bony destructive process. Facet joints appear normal. There is no spin al stenosis. There is minute posterior L5-S1 disc bulge without compromise of the spinal canal. IMPRESSION: Small posterior L5-S1 disc bulge. Otherwise negative exam.
== END | disposition home or self-care (01) ==
LOC: RADMRIMAIN 16:08
PROVIDERS: ATTEND Psychiatry & Neurology Neurology
DX: M51.27 Other intervertebral disc displacement, lumbosacral region (principal)
CPT/HCPCS: 72148

== ENCOUNTER 2019-02-23 18:15 | Emergency (ER) | payer OTHER ==
[2019-02-23 18:29] VITALS: BP 137/80; PULSE 108; RESP 18; TEMP 97.8
--- NOTE | 2019-02-23 18:57 | ED ---
General Adult HPI - General Chief complaint: Extremity Problem,Nontraumatic Stated complaint: poss infection in both feet Time Seen by Provider: 02/23/19 18:30 Source: patient, RN notes reviewed Mode of arrival: ambulatory Limitations: no limitations - History of Present Illness Initial comments: 33-year-old female presents to the emergency pertinent for a chief complaint of bilateral foot redness and pain. Patient states she started to notice this 2 days ago. States she has peeling skin in between her toes. States it is becoming somewhat painful. States it is now going to the mid plantar foot. Patient did try one day of antifungal cream but it did not help. She did state use antibiotic cream as well. Denies fevers or chills. Denies history of diabetes. Denies rash of the hands or anywhere else on the body. Denies any trauma.Patient has no other complaints at this time including shortness of breath, chest pain, abdominal pain, nausea or vomiting, headache, or visual changes. - Related Data Home Medications Medication Instructions Recorded Confirmed ALPRAZolam [Xanax] 0.5 mg PO QID PRN 03/31/14 04/13/17 ARIPiprazole [Abilify] 15 mg PO DAILY 08/01/14 04/13/17 Hydrocodone/Acetaminophen 1 tab PO QID PRN 08/13/14 04/13/17 [Hydrocodon-Acetaminoph 7.5-325] Omeprazole [PriLOSEC] 20 mg PO BID PRN 08/13/14 04/13/17 Topiramate [Topamax] 25 mg PO DAILY 10/26/15 04/13/17 Citalopram Hydrobromide [CeleXA] 30 mg PO DAILY 01/30/16 04/13/17 Cyclobenzaprine [Flexeril] 10 mg PO TID PRN 07/01/16 04/13/17 Albuterol Inhaler [Ventolin Hfa 2 puff INHALATION RT-Q6H PRN 09/11/16 04/13/17 Inhaler] Albuterol Nebulized [Ventolin 2.5 mg INHALATION RT-Q6H PRN 09/11/16 04/13/17 Nebulized] Ibuprofen [Motrin] 800 mg PO TID PRN 09/12/16 04/13/17 diphenhydrAMINE HCL [Benadryl] 50 mg PO BID PRN 09/12/16 04/13/17 SUMAtriptan SUCCINATE [Imitrex] 25 mg PO BID PRN 11/14/16 04/13/17 Previous Rx's Medication Instructions Recorded Ondansetron Odt [Zofran ODT] 4 mg PO Q8HR PRN #20 tab 04/11/17 Ibuprofen [Motrin] 600 mg PO Q6HR PRN #20 tab 04/13/17 Naproxen [Naprosyn] 500 mg PO Q12HR #30 tab 04/26/17 methylPREDNISolone Dose Pack 4 mg PO DIRECTED #21 package 04/26/17 [Medrol Dose Pack] traMADol HCL [Ultram] 50 mg PO Q6HR PRN #30 tab 04/26/17 Clotrimazole Cream [Lotrimin Cream] 1 applic TOPICAL BID 14 Days gm 02/23/19 Allergies Allergy/AdvReac Type Severity Reaction Status Date / Time bupropion HCl AdvReac Nausea & Verified 02/23/19 18:29 [From Wellbutrin] Vomiting desvenlafaxine [From Pristiq] AdvReac Confusion Verified 02/23/19 18:29 Review of Systems ROS Statement: Those systems with pertinent positive or pertinent negative responses have been documented in the HPI. ROS Other: All systems not noted in ROS Statement are negative. Past Medical History Past Medical History: Asthma Additional Past Medical History / Comment(s): OVARIAN CYSTS, migraines, back pain History of Any Multi-Drug Resistant Organisms: None Reported Past Surgical History: Section, Tubal Ligation Past Psychological History: Anxiety, Bipolar, Depression Smoking Status: Light tobacco smoker Past Alcohol Use History: None Reported Past Drug Use History: None Reported General Exam Limitations: no limitations General appearance: alert, in no apparent distress Head exam: Present: atraumatic, normocephalic, normal inspection Eye exam: Present: normal appearance, PERRL, EOMI. Absent: scleral icterus, conjunctival injection, periorbital swelling ENT exam: Present: normal exam, normal oropharynx, mucous membranes moist, TM's normal bilaterally, normal external ear exam Neck exam: Present: normal inspection, full ROM. Absent: tenderness, meningismus, lymphadenopathy Respiratory exam: Present: normal lung sounds bilaterally. Absent: respiratory distress, wheezes, rales, rhonchi, stridor Cardiovascular Exam: Present: regular rate, normal rhythm, normal heart sounds. Absent: systolic murmur, diastolic murmur, rubs, gallop, clicks Extremities exam: Present: other (Patient has small erosions noted between digits of the plantar aspect of right and left. Negative Nikolsky sign.) Neurological exam: Present: alert, oriented X3, CN II-XII intact Psychiatric exam: Present: normal affect, normal mood Course Vital Signs 02/23/19 18:27 Temperature 97.8 F Pulse Rate 108 H Respiratory 18 Rate Blood Pressure 137/80 O2 Sat by Pulse 100 Oximetry Medical Decision Making - Medical Decision Making 33-year-old female presents for erythema and peeling of feet bilaterally 2 days. Patient does have small erosions noted between bilateral toes that are consistent with athlete's foot. Patient did try one day. Antifungal's. However patient will need to try this for longer for it to likely of affect. Patient will be given a prescription for this. Discussed applying this twice a day and keeping feet as dry as possible. Discussed following up with primary care or dermatology in 1-2 days. Did discuss returning here she has any worsening symptoms or if symptoms are not improving after trying antifungal cream for possible oral antifungal therapy. However I do not think this is warranted at this time is patient is only tried one day of antifungal cream. Disposition Clinical Impression: Tinea pedis Disposition: HOME SELF-CARE Condition: Good Instructions (If sedation given, give patient instructions): Antifungals (On the skin), Athlete's Foot (ED) Additional Instructions: Please apply cream twice per day. Please keep the area dry. Please follow-up with primary care or dermatology in 1-2 days. Return here to the emergency department if you have any worsening symptoms Prescriptions: Clotrimazole Cream [Lotrimin Cream] 1 applic TOPICAL BID 14 Days gm Is patient prescribed a controlled substance at d/c from ED?: No Referrals: Breanna Mcguire MD [Primary Care Provider] - 1-2 days Gerber Wright MD [STAFF PHYSICIAN] - 1-2 days Time of Disposition: 18:54
== END 2019-02-23 19:06 | disposition home or self-care (01) ==
LOC: EC 18:15
DX: B35.3 Tinea pedis (principal); J45.909 Unspecified asthma, uncomplicated; F31.9 Bipolar disorder, unspecified; F41.9 Anxiety disorder, unspecified; F17.200 Nicotine dependence, unspecified, uncomplicated; Z88.8 Allergy status to other drugs, medicaments and biological substances; Z79.899 Other long term (current) drug therapy; Z86.69 Personal history of other diseases of the nervous system and sense organs
CPT/HCPCS: 99283

== ENCOUNTER 2019-03-05 05:37 | Emergency (ER) | payer OTHER ==
[2019-03-05] MEDS ORDERED: SUMAtriptan SUCCINATE 6 MG/0.5 ML VIAL SQ STA (06:00)
[2019-03-05] MEDS ORDERED: ONDANSETRON ODT 4 MG TAB PO STA (06:52)
--- NOTE | 2019-03-05 06:53 | ED ---
Headache HPI - General Chief Complaint: Headache Stated Complaint: Headache Time Seen by Provider: 03/05/19 05:55 Mode of arrival: ambulatory Limitations: no limitations - History of Present Illness Initial Comments: This patient is a 33-year-old woman with history of previous migraines, who presents with what she is describing as her typical migraine. She states that she usually takes Imitrex for relief of these headaches, but she is currently out of that medication. She did try her other medications, including [place] but it was not providing much relief. The patient states she is not having any atypical features with this headache. It is not the worst headache of life. She has not had fever or neck stiffness. No neurologic symptoms. MD Complaint: headache Onset/Timin -: days(s) Onset Description: gradual, at rest Location: left, frontal Severity: severe Quality: aching Consistency: constant Worsens With: light Context: occurred at rest Associated Symptoms: photophobia, sensitivity to sound Treatments Prior to Arrival: prescription analgesic - Related Data Home Medications Medication Instructions Recorded Confirmed ALPRAZolam [Xanax] 0.5 mg PO QID PRN 03/31/14 04/13/17 ARIPiprazole [Abilify] 15 mg PO DAILY 08/01/14 04/13/17 Hydrocodone/Acetaminophen 1 tab PO QID PRN 08/13/14 04/13/17 [Hydrocodon-Acetaminoph 7.5-325] Omeprazole [PriLOSEC] 20 mg PO BID PRN 08/13/14 04/13/17 Topiramate [Topamax] 25 mg PO DAILY 10/26/15 04/13/17 Citalopram Hydrobromide [CeleXA] 30 mg PO DAILY 01/30/16 04/13/17 Cyclobenzaprine [Flexeril] 10 mg PO TID PRN 07/01/16 04/13/17 Albuterol Inhaler [Ventolin Hfa 2 puff INHALATION RT-Q6H PRN 09/11/16 04/13/17 Inhaler] Albuterol Nebulized [Ventolin 2.5 mg INHALATION RT-Q6H PRN 09/11/16 04/13/17 Nebulized] Ibuprofen [Motrin] 800 mg PO TID PRN 09/12/16 04/13/17 diphenhydrAMINE HCL [Benadryl] 50 mg PO BID PRN 09/12/16 04/13/17 SUMAtriptan SUCCINATE [Imitrex] 25 mg PO BID PRN 11/14/16 04/13/17 Previous Rx's Medication Instructions Recorded Ondansetron Odt [Zofran ODT] 4 mg PO Q8HR PRN #20 tab 04/11/17 Ibuprofen [Motrin] 600 mg PO Q6HR PRN #20 tab 04/13/17 Naproxen [Naprosyn] 500 mg PO Q12HR #30 tab 04/26/17 methylPREDNISolone Dose Pack 4 mg PO DIRECTED #21 package 04/26/17 [Medrol Dose Pack] traMADol HCL [Ultram] 50 mg PO Q6HR PRN #30 tab 04/26/17 Clotrimazole Cream [Lotrimin Cream] 1 applic TOPICAL BID 14 Days gm 02/23/19 Allergies Allergy/AdvReac Type Severity Reaction Status Date / Time bupropion HCl AdvReac Nausea & Verified 03/05/19 05:44 [From Wellbutrin] Vomiting desvenlafaxine [From Pristiq] AdvReac Confusion Verified 03/05/19 05:44 [email or web address] [From Chantix] AdvReac Rash/Hives Verified 03/05/19 05:44 Review of Systems ROS Statement: Those systems with pertinent positive or pertinent negative responses have been documented in the HPI. ROS Other: All systems not noted in ROS Statement are negative. Constitutional: Denies: fever, chills, weakness Eyes: Denies: vision change ENT: Denies: ear pain, hearing loss Respiratory: Denies: cough, dyspnea Cardiovascular: Denies: chest pain, syncope Gastrointestinal: Reports: nausea. Denies: abdominal pain, vomiting Musculoskeletal: Denies: back pain Skin: Denies: rash Neurological: Reports: headache. Denies: weakness, numbness, paresthesias, confusion Past Medical History Past Medical History: Asthma, Hypertension Additional Past Medical History / Comment(s): OVARIAN CYSTS, migraines, back pain, History of Any Multi-Drug Resistant Organisms: None Reported Past Surgical History: Section, Tubal Ligation Past Psychological History: Anxiety, Bipolar, Depression Smoking Status: Current some day smoker Past Alcohol Use History: None Reported Past Drug Use History: None Reported General Exam Limitations: no limitations General appearance: alert, in no apparent distress Head exam: Present: atraumatic, normocephalic Eye exam: Present: normal appearance, PERRL, EOMI. Absent: scleral icterus, conjunctival injection, nystagmus ENT exam: Present: normal oropharynx Neck exam: Present: normal inspection, full ROM. Absent: tenderness, meningismus Neurological exam: Present: alert, oriented X3, CN II-XII intact. Absent: motor sensory deficit Skin exam: Present: warm, dry, intact, normal color. Absent: rash Course Vital Signs 03/05/19 05:41 Temperature 97.7 F Pulse Rate 98 Respiratory 18 Rate Blood Pressure 143/89 O2 Sat by Pulse 100 Oximetry Disposition Clinical Impression: Migraine Disposition: HOME SELF-CARE Condition: Good Instructions (If sedation given, give patient instructions): Migraine Headache (ED) Is patient prescribed a controlled substance at d/c from ED?: No Referrals: Breanna Mcugire MD [Primary Care Provider] - 1-2 days
[2019-03-05 07:03] VITALS: BP 122/72; PULSE 77; RESP 20; TEMP 98
== END 2019-03-05 07:03 | disposition home or self-care (01) ==
LOC: EC 05:37
DX: G43.909 Migraine, unspecified, not intractable, without status migrainosus (principal); J45.909 Unspecified asthma, uncomplicated; F41.9 Anxiety disorder, unspecified; F32.9 Major depressive disorder, single episode, unspecified; F17.200 Nicotine dependence, unspecified, uncomplicated; Z79.899 Other long term (current) drug therapy; Z88.8 Allergy status to other drugs, medicaments and biological substances
CPT/HCPCS: 99283; 96372; J3030

== ENCOUNTER 2019-03-26 07:31 | Emergency (ER) | payer OTHER ==
[2019-03-26 07:40] VITALS: BP 122/79; PULSE 96; RESP 18; TEMP 97.4
[2019-03-26] MEDS ORDERED: ORPHENADRINE 30 MG/ML 2 ML VIAL IVP STA (08:01)
[2019-03-26] MEDS ORDERED: diphenhydrAMINE 50 MG/ML 1 ML VIAL IVP STA (08:01)
[2019-03-26] MEDS ORDERED: SODIUM CHLORIDE 0.9% 1,000 ML IV STA (08:01)
[2019-03-26] MEDS ORDERED: METOCLOPRAMIDE 5 MG/ML 2 ML VIAL IVP STA (08:01)
[2019-03-26] MEDS ORDERED: KETOROLAC 30 MG/ML 1 ML VIAL IVP STA (08:01)
--- NOTE | 2019-03-26 08:09 | ED ---
Headache HPI - General Chief Complaint: Headache Stated Complaint: Headache Time Seen by Provider: 03/26/19 08:01 Source: RN notes reviewed, old records reviewed Mode of arrival: ambulatory Limitations: no limitations - History of Present Illness Initial Comments: Patient is a 33-year-old female presenting return today for evaluation for complaint of migraine headache. She reports she woke up the migraine. Patient states she tends to get them around the beginning of her menstrual cycle. She is due for her menstrual cycle in the couple days. Patient states that she has no fevers or chills. She reports her migraines similar to previous migraines. Denies any neck pain or stiffness. She states that she has had a dose of her Imitrex morning with little relief. She reports she typically has improvement after Toradol Reglan and Benadryl. - Related Data Home Medications Medication Instructions Recorded Confirmed ALPRAZolam [Xanax] 0.5 mg PO QID PRN 03/31/14 03/26/19 ARIPiprazole [Abilify] 15 mg PO DAILY 08/01/14 03/26/19 Hydrocodone/Acetaminophen 1 tab PO QID PRN 08/13/14 03/26/19 [Hydrocodon-Acetaminoph 7.5-325] Omeprazole [PriLOSEC] 20 mg PO BID PRN 08/13/14 03/26/19 Citalopram Hydrobromide [CeleXA] 30 mg PO DAILY 01/30/16 03/26/19 Albuterol Inhaler [Ventolin Hfa 2 puff INHALATION RT-Q6H PRN 09/11/16 03/26/19 Inhaler] diphenhydrAMINE HCL [Benadryl] 50 mg PO BID PRN 09/12/16 03/26/19 SUMAtriptan SUCCINATE [Imitrex] 25 mg PO BID PRN 11/14/16 03/26/19 Ibuprofen [Motrin Ib] 400 mg PO Q6H PRN 03/26/19 03/26/19 Topiramate [Trokendi Xr] 25 mg PO DAILY 03/26/19 03/26/19 Allergies Allergy/AdvReac Type Severity Reaction Status Date / Time bupropion HCl AdvReac Nausea & Verified 03/26/19 08:10 [From Wellbutrin] Vomiting desvenlafaxine [From Pristiq] AdvReac Confusion Verified 03/26/19 08:10 varenicline [From Chantix] AdvReac Rash/Hives Verified 03/26/19 08:10 Review of Systems ROS Statement: Those systems with pertinent positive or pertinent negative responses have been documented in the HPI. ROS Other: All systems not noted in ROS Statement are negative. Past Medical History Past Medical History: Asthma, Hypertension Additional Past Medical History / Comment(s): OVARIAN CYSTS, migraines, back pain, History of Any Multi-Drug Resistant Organisms: None Reported Past Surgical History: Section, Tubal Ligation Past Psychological History: Anxiety, Bipolar, Depression Smoking Status: Current some day smoker Past Alcohol Use History: None Reported Past Drug Use History: None Reported General Exam - General Exam Comments Initial Comments: At 33-year-old female. No significant distress. He is wearing sunglasses, photophobic. General: Well appearing, well nourished, in no distress. Oriented x 3, normal mood and affect . Ambulating without difficulty. Skin: Good turgor, no rash, unusual bruising or prominent lesions Hair: Normal texture and distribution. HEENT: Head: Normocephalic, atraumatic, no visible or palpable masses, depressions, or scaring. Eyes: Visual acuity intact, conjunctiva clear, sclera non-icteric, EOM intact, PERRL. Ears: EACs clear, TMs translucent & cone of light visualized. hearing intact. Nose: No external lesions, mucosa non-inflamed, septum and turbinates normal Mouth: Mucous membranes moist, no mucosal lesions. Teeth/Gums: No obvious caries or periodontal disease. No gingival inflammation or significant resorption. Pharynx: Mucosa non-inflamed, no tonsillar hypertrophy or exudate Neck: Supple, without lesions, bruits, or adenopathy, thyroid non-enlarged and non-tender Heart: No cardiomegaly or thrills; regular rate and rhythm, no murmur or gallop Lungs: Clear to auscultation and percussion Abdomen: Bowel sounds normal, no tenderness, organomegaly, masses, or hernia Extremities: No amputations or deformities, cyanosis, edema or varicosities, peripheral pulses intact Musculoskeletal: Normal gait and station. No misalignment, asymmetry, crepitation, defects, tenderness, masses, effusions, decreased range of motion, instability, atrophy or abnormal strength or tone in the head, neck, spine, ri bs, pelvis or extremities. Neurologic: CN 2-12 normal. Sensation to pain, touch, and proprioception normal. DTRs normal in upper and lower extremities. No pathologic reflexes. Psychiatric: Oriented X3, intact recent and remote memory, judgment and insight, normal mood and affect. Limitations: no limitations Course Vital Signs 03/26/19 07:38 Temperature 97.4 F L Pulse Rate 96 Respiratory 18 Rate Blood Pressure 122/79 O2 Sat by Pulse 99 Oximetry Medical Decision Making - Medical Decision Making Patient's-year-old female presents with migraine headache. Similar to her typical migraines. While in emergency Department Patient was examined, is been no significant distress. I did offer the Patient IV fluids, and ordered pain medication to help with her migraine headache. When nurse went to room to start IV Patient had a hard he left. She left without telling any staff members she was leaving. Disposition Clinical Impression: Migraine Disposition: Left Against Medical Advice Condition: Stable Referrals: Breanna Mcguire MD [Primary Care Provider] - 1-2 days Time of Disposition: 08:58
== END 2019-03-26 09:08 | disposition left against medical advice (07) ==
LOC: EC 07:31
DX: G43.909 Migraine, unspecified, not intractable, without status migrainosus (principal); J45.909 Unspecified asthma, uncomplicated; F31.9 Bipolar disorder, unspecified; F41.9 Anxiety disorder, unspecified; F17.200 Nicotine dependence, unspecified, uncomplicated; Z88.8 Allergy status to other drugs, medicaments and biological substances; Z79.899 Other long term (current) drug therapy; Z53.20 Procedure and treatment not carried out because of patient's decision for unspecified reasons
CPT/HCPCS: 99283

== ENCOUNTER 2019-12-07 10:11 | Emergency (ER) | payer OTHER ==
[2019-12-07 10:15] VITALS: TEMP 97.6
[2019-12-07] MEDS ORDERED: SODIUM CHLORIDE 0.9% 1,000 ML IV STA ×2 (11:03)
[2019-12-07 11:19] LABS: Basophils # (A) 0.2 k/uL (0-0.2); Basophils % (A) 1 %; Eosinophils # (A) 0.2 k/uL (0-0.7); Eosinophils % (A) 1 %; HCT 49.4 % (34.0-46.0); HGB 16.3 gm/dL (11.4-16.0); Lymphocytes # (A) 3.8 k/uL (1.0-4.8); Lymphocytes % (A) 27 %; MCH 30.2 pg (25.0-35.0); MCHC 33.1 g/dL (31.0-37.0); MCV 91.4 fL (80.0-100.0); Mean Platelet Volume 8.7; Monocytes # (A) 0.7 k/uL (0-1.0); Monocytes % (A) 5 %; Neutrophils # (A) 9.1 k/uL (1.3-7.7); Neutrophils % (A) 65 %; Platelet Count 242 k/uL (150-450); RDW 12.2 % (11.5-15.5); WBC 14.1 k/uL (3.8-10.6)
[2019-12-07 11:20] LABS: Appearance,Urine Clear (Clear); Bilirubin,Urine Negative (Negative); Blood,Urine Negative (Negative); Color,Urine Light Yellow; Glucose,Urine (UA) Negative (Negative); Ketones,Urine Negative (Negative); Leukocyte Esterase,Urine Negative (Negative); Nitrite,Urine Negative (Negative); Protein,Urine Negative (Negative); Specific Gravity,Urine 1.007 (1.001-1.035); Urobilinogen,Urine <2.0 mg/dL (<2.0)
[2019-12-07] MEDS ORDERED: ONDANSETRON 4 MG/2 ML VIAL IVP STA (11:27)
[2019-12-07] MEDS ORDERED: KETOROLAC 30 MG/ML 1 ML VIAL IVP STA (11:27)
[2019-12-07 11:28] LABS: ALT 11 U/L (4-34); AST 22 U/L (14-36); African American GFR (CKD) >90 (>60 ml/min/1.73 sqM); Alkaline Phosphatase 55 U/L (38-126); Anion Gap 12 mmol/L; Blood Urea Nitrogen 10 mg/dL (7-17); Calcium 10.2 mg/dL (8.4-10.2); Carbon Dioxide 22 mmol/L (22-30); Chloride 101 mmol/L (98-107); Glucose 105 mg/dL (74-99); Non-African American GFR(CKD) >90 (>60 ml/min/1.73 sqM); Sodium 135 mmol/L (137-145); Total Bilirubin 1.8 mg/dL (0.2-1.3); Total Protein 8.2 g/dL (6.3-8.2)
[2019-12-07 11:32] LABS: INR 0.9 (<1.2); Partial Thromboplastin Time 23.9 sec (22.0-30.0); Prothrombin Time 9.8 sec (9.0-12.0)
--- NOTE | 2019-12-07 13:04 | ED ---
Abdominal Pain HPI - General Chief Complaint: Abdominal Pain Stated Complaint: abd.pain Time Seen by Provider: 12/07/19 10:37 Source: patient, RN notes reviewed, old records reviewed Mode of arrival: ambulatory Limitations: no limitations - History of Present Illness Initial Comments: Patient is a 34-year-old female presents today for evaluation for pelvic and left and right lower abdominal pain. Symptoms for 3 days. She states that she's had no fevers or chills. She reports some change in stool. - Related Data Home Medications Medication Instructions Recorded Confirmed ALPRAZolam [Xanax] 0.5 mg PO QID PRN 03/31/14 03/26/19 ARIPiprazole [Abilify] 15 mg PO DAILY 08/01/14 03/26/19 Hydrocodone/Acetaminophen 1 tab PO QID PRN 08/13/14 03/26/19 [Hydrocodon-Acetaminoph 7.5-325] Omeprazole [PriLOSEC] 20 mg PO BID PRN 08/13/14 03/26/19 Citalopram Hydrobromide [CeleXA] 30 mg PO DAILY 01/30/16 03/26/19 Albuterol Inhaler [Ventolin Hfa 2 puff INHALATION RT-Q6H PRN 09/11/16 03/26/19 Inhaler] diphenhydrAMINE HCL [Benadryl] 50 mg PO BID PRN 09/12/16 03/26/19 SUMAtriptan SUCCINATE [Imitrex] 25 mg PO BID PRN 11/14/16 03/26/19 Ibuprofen [Motrin Ib] 400 mg PO Q6H PRN 03/26/19 03/26/19 Topiramate [Trokendi Xr] 25 mg PO DAILY 03/26/19 03/26/19 Previous Rx's Medication Instructions Recorded Ibuprofen [Motrin] 600 mg PO Q8HR PRN #20 tab 12/07/19 Allergies Allergy/AdvReac Type Severity Reaction Status Date / Time bupropion HCl AdvReac Nausea & Verified 03/26/19 08:10 [From Wellbutrin] Vomiting desvenlafaxine [From Pristiq] AdvReac Confusion Verified 03/26/19 08:10 varenicline [From Chantix] AdvReac Rash/Hives Verified 03/26/19 08:10 Review of Systems ROS Statement: Those systems with pertinent positive or pertinent negative responses have been documented in the HPI. ROS Other: All systems not noted in ROS Statement are negative. Past Medical History Past Medical History: Asthma, Hypertension Additional Past Medical History / Comment(s): OVARIAN CYSTS, migraines, back pain, History of Any Multi-Drug Resistant Organisms: None Reported Past Surgical History: Section, Tubal Ligation Past Psychological History: Anxiety, Bipolar, Depression Smoking Status: Current some day smoker Past Alcohol Use History: None Reported Past Drug Use History: Marijuana General Exam - General Exam Comments Initial Comments: Alert and oriented 34-year-old female. No distress. Limitations: no limitations General appearance: alert, in no apparent distress Head exam: Present: atraumatic Eye exam: Present: normal appearance, PERRL, EOMI. Absent: scleral icterus, conjunctival injection, periorbital swelling ENT exam: Present: normal exam, mucous membranes moist Neck exam: Present: normal inspection. Absent: tenderness, meningismus, lymphadenopathy Respiratory exam: Present: normal lung sounds bilaterally. Absent: respiratory distress, wheezes, rales, rhonchi, stridor Cardiovascular Exam: Present: regular rate, normal rhythm, normal heart sounds. Absent: systolic murmur, diastolic murmur, rubs, gallop, clicks GI/Abdominal exam: Present: soft, tenderness (LLQ and RLQ tenderness), normal bowel sounds. Absent: distended, guarding, rebound, rigid Extremities exam: Present: normal inspection, full ROM, normal capillary refill. Absent: tenderness, pedal edema, joint swelling, calf tenderness Back exam: Present: normal inspection Neurological exam: Present: alert, oriented X3, CN II-XII intact Course Vital Signs 12/07/19 12/07/19 12/07/19 10:12 10:21 12:25 Temperature 97.6 F 97.6 F Pulse Rate 111 H 100 87 Respiratory 18 18 16 Rate Blood Pressure 136/83 136/93 121/87 O2 Sat by Pulse 100 100 Oximetry 12/07/19 14:03 Temperature Pulse Rate 94 Respiratory 18 Rate Blood Pressure 111/76 O2 Sat by Pulse 98 Oximetry Medical Decision Making - Medical Decision Making 34 year old female with lower abdominal pain for 3 days. Labs were reviewed, showing mild leukocytosis. Patient CT abdomen and pelvis was reviewed and found to be normal. No sign of appendicitis or ovarian problems. Discussed return parameters and PCP follow up. - Lab Data Result diagrams: 12/07/19 10:30 12/07/19 10:30 Lab Results 12/07/19 12/07/19 12/07/19 Range/Units 10:30 10:30 10:30 WBC 14.1 H (3.8-10.6) k/uL RBC 5.40 (3.80-5.40) m/uL Hgb 16.3 H (11.4-16.0) gm/dL Hct 49.4 H (34.0-46.0) % MCV 91.4 (80.0-100.0) fL MCH 30.2 (25.0-35.0) pg MCHC 33.1 (31.0-37.0) g/dL RDW 12.2 (11.5-15.5) % Plt Count 242 (150-450) k/uL Neutrophils % 65 % Lymphocytes % 27 % Monocytes % 5 % Eosinophils % 1 % Basophils % 1 % Neutrophils # 9.1 H (1.3-7.7) k/uL Lymphocytes # 3.8 (1.0-4.8) k/uL Monocytes # 0.7 (0-1.0) k/uL Eosinophils # 0.2 (0-0.7) k/uL Basophils # 0.2 (0-0.2) k/uL PT (9.0-12.0) sec INR (<1.2) APTT (22.0-30.0) sec Sodium 135 L (137-145) mmol/L Potassium 4.0 (3.5-5.1) mmol/L Chloride 101 (98-107) mmol/L Carbon Dioxide 22 (22-30) mmol/L Anion Gap 12 mmol/L BUN 10 (7-17) mg/dL Creatinine 0.68 (0.52-1.04) mg/dL Est GFR (CKD-EPI)AfAm >90 (>60 ml/min/1.73 sqM) Est GFR (CKD-EPI)NonAf >90 (>60 ml/min/1.73 sqM) Glucose 105 H (74-99) mg/dL Calcium 10.2 (8.4-10.2) mg/dL Total Bilirubin 1.8 H (0.2-1.3) mg/dL AST 22 (14-36) U/L ALT 11 (4-34) U/L Alkaline Phosphatase 55 (38-126) U/L Total Protein 8.2 (6.3-8.2) g/dL Albumin 5.0 (3.5-5.0) g/dL Amylase (30-110) U/L Lipase 91 (23-300) U/L Urine Color Urine Appearance (Clear) Urine pH (5.0-8.0) Ur Specific [place] (1.001-1.035) Urine Protein (Negative) Urine Glucose (UA) (Negative) Urine Ketones (Negative) Urine Blood (Negative) Urine Nitrite (Negative) Urine Bilirubin (Negative) Urine Urobilinogen (<2.0) mg/dL Ur Leukocyte Esterase (Negative) Urine HCG, Qual Not Detected (Not Detectd) 12/07/19 12/07/19 12/07/19 Range/Units 10:30 10:30 10:30 WBC (3.8-10.6) k/uL RBC (3.80-5.40) m/uL Hgb (11.4-16.0) gm/dL Hct (34.0-46.0) % MCV (80.0-100.0) fL MCH (25.0-35.0) pg MCHC (31.0-37.0) g/dL RDW (11.5-15.5) % Plt Count (150-450) k/uL Neutrophils % % Lymphocytes % % Monocytes % % Eosinophils % % Basophils % % Neutrophils # (1.3-7.7) k/uL Lymphocytes # (1.0-4.8) k/uL Monocytes # (0-1.0) k/uL Eosinophils # (0-0.7) k/uL Basophils # (0-0.2) k/uL PT 9.8 (9.0-12.0) sec INR 0.9 (<1.2) APTT 23.9 (22.0-30.0) sec Sodium (137-145) mmol/L Potassium (3.5-5.1) mmol/L Chloride (98-107) mmol/L Carbon Dioxide (22-30) mmol/L Anion Gap mmol/L BUN (7-17) mg/dL Creatinine (0.52-1.04) mg/dL Est GFR (CKD-EPI)AfAm (>60 ml/min/1.73 sqM) Est GFR (CKD-EPI)NonAf (>60 ml/min/1.73 sqM) Glucose (74-99) mg/dL Calcium (8.4-10.2) mg/dL Total Bilirubin (0.2-1.3) mg/dL AST (14-36) U/L ALT (4-34) U/L Alkaline Phosphatase (38-126) U/L Total Protein (6.3-8.2) g/dL Albumin (3.5-5.0) g/dL Amylase 45 (30-110) U/L Lipase (23-300) U/L Urine Color Light Yellow Urine Appearance Clear (Clear) Urine pH 6.0 (5.0-8.0) Ur Specific [place] 1.007 (1.001-1.035) Urine Protein Negative (Negative) Urine Glucose (UA) Negative (Negative) Urine Ketones Negative (Negative) Urine Blood Negative (Negative) Urine Nitrite Negative (Negative) Urine Bilirubin Negative (Negative) Urine Urobilinogen <2.0 (<2.0) mg/dL Ur Leukocyte Esterase Negative (Negative) Urine HCG, Qual (Not Detectd) 12/07/19 13:48 EKG performed at 1213 shows normal sinus rhythm possible left atrial enlargement. Ventricular rate of 84 bpm. SC interval is 160 ms. QS duration is 80 ms. QT QTc is 350/423 ms. - Radiology Data Radiology results: report reviewed Normal CT abdomen and pelvis. Disposition Clinical Impression: Lower abdominal pain Disposition: HOME SELF-CARE Condition: Good Instructions (If sedation given, give patient instructions): Abdominal Pain (ED) Additional Instructions: Patient should've a clear liquid diet. Patient advised to follow-up with your primary care physician. Return to emergency department if any alarming signs or symptoms occur. Prescriptions: Ibuprofen [Motrin] 600 mg PO Q8HR PRN #20 tab PRN Reason: Pain Is patient prescribed a controlled substance at d/c from ED?: No Referrals: Breanna Mcguire MD [Primary Care Provider] - 1-2 days Time of Disposition: 13:50
--- NOTE | 2019-12-07 13:28 | CT ---
EXAMINATION TYPE: CT abdomen pelvis w con DATE OF EXAM: 12/07/2019 COMPARISON: 04/01/2013 INDICATION: Pelvic pain with increased frequency of urination DLP: 796.7 mGycm, Automated exposure control for dose reduction was used. CONTRAST: 100 mL of Isovue 300. Study performed without Oral Contrast TECHNIQUE: Axial images were obtained from above the diaphragm to the pubic rami in the axial plane a t 5 mm thick sections. Reconstructed images are reviewed on the computer in the coronal plane. FINDINGS: Limited CT sections are obtained the lung bases. The lung bases are clear. CT ABDOMEN: Liver: Normal Spleen: Normal Pancreas: Normal Adrenal glands: The adrenal glands are normal. Gallbladder: Normal Kidneys: No masses are evident. No hydronephrosis is present. No cysts are present. Delayed images were obtained through the kidneys, which remain unremarkable. Aorta: Normal Inferior vena cava: Normal. CT PELVIS: Loops of bowel within the abdomen and pelvis are normal. There are loops of bowel which are incom pletely distended or lack oral contrast limiting their evaluation. Appendix: What appears to be the appendix is Normal as visualized. Urinary bladder: Normal. Genitourinary structures: Uterus is unremarkable. There may be some mild fullness of the right ovary. Left ovary is not discretely identified. Osseous structures: No suspicious lytic or sclerotic lesions. IMPRESSIONS: 1. Normal CT abdomen and pelvis.
[2019-12-07 14:06] VITALS: BP 111/76; PULSE 94; RESP 18
== END 2019-12-07 14:03 | disposition home or self-care (01) ==
LOC: EC 10:11
DX: R10.31 Right lower quadrant pain (principal); R10.32 Left lower quadrant pain; D72.829 Elevated white blood cell count, unspecified; R10.814 Left lower quadrant abdominal tenderness; R10.813 Right lower quadrant abdominal tenderness; F41.9 Anxiety disorder, unspecified; F31.9 Bipolar disorder, unspecified; J45.909 Unspecified asthma, uncomplicated; I10 Essential (primary) hypertension; F17.200 Nicotine dependence, unspecified, uncomplicated; Z79.899 Other long term (current) drug therapy; Z88.8 Allergy status to other drugs, medicaments and biological substances
CPT/HCPCS: 36415; 93005; 80053; 82150; 83690; 85025; 85610; 85730; 81003; 81025; 74177; 99285; 96374; 96375; 96361 ×2; J2405; J1885; Q9967

== ENCOUNTER 2020-08-22 19:46 | Emergency (ER) | payer OTHER ==
[2020-08-22] MEDS ORDERED: KETOROLAC 15 MG/ML 1 ML VIAL IVP STA (20:24)
[2020-08-22] MEDS ORDERED: ONDANSETRON 4 MG/2 ML VIAL IVP STA (20:25)
[2020-08-22] MEDS ORDERED: SODIUM CHLORIDE 0.9% 500 ML 500 ML IV ONE (20:25)
[2020-08-22] MEDS ORDERED: diphenhydrAMINE 50 MG/ML 1 ML VIAL IVP STA (20:25)
--- NOTE | 2020-08-22 20:34 | ED ---
Headache HPI - General Chief Complaint: Headache Stated Complaint: Headache, Anxiety Time Seen by Provider: 08/22/20 20:03 Mode of arrival: ambulatory Limitations: no limitations - History of Present Illness Initial Comments: 35-year-old female presenting today for chief complaint of headache. She states she is chronic headaches and has to take prophylactic medication, and abortive medications at home. She states she only has breakthrough headaches. Patient states she is currently having a breakthrough headache she states is typical of her chronic migraines. She denies any concerning changes. She states she does have some nausea which is typical as well as light sensitivity. She denies any head injuries fevers Stiffness. Patient denies any strokelike symptoms such as weakness of the extremities facial asymmetry or sensation deficits. Patient denies any feeling of being off balance. Patient denies this being the worst headache of her life or sudden onset. Patient denies any history of aneurysm. Patient states that usually a migraine cocktail helped support her headache, patient did take zofran today but > 8 hours ago. Patient denies additional complaints and appears well on arrival. - Related Data Home Medications Medication Instructions Recorded Confirmed ALPRAZolam [Xanax] 0.5 mg PO QID PRN 03/31/14 03/26/19 ARIPiprazole [Abilify] 15 mg PO DAILY 08/01/14 03/26/19 Hydrocodone/Acetaminophen 1 tab PO QID PRN 08/13/14 03/26/19 [Hydrocodon-Acetaminoph 7.5-325] Omeprazole [PriLOSEC] 20 mg PO BID PRN 08/13/14 03/26/19 Citalopram Hydrobromide [CeleXA] 30 mg PO DAILY 01/30/16 03/26/19 Albuterol Inhaler (Mhu) [Ventolin 2 puff INHALATION RT-Q6H PRN 09/11/16 03/26/19 Hfa Inhaler] diphenhydrAMINE HCL [Benadryl] 50 mg PO BID PRN 09/12/16 03/26/19 SUMAtriptan succinate [Imitrex] 25 mg PO BID PRN 11/14/16 03/26/19 Ibuprofen [Motrin Ib] 400 mg PO Q6H PRN 03/26/19 03/26/19 Topiramate [Trokendi Xr] 25 mg PO DAILY 03/26/19 03/26/19 Previous Rx's Medication Instructions Recorded Ibuprofen [Motrin] 600 mg PO Q8HR PRN #20 tab 12/07/19 Allergies Allergy/AdvReac Type Severity Reaction Status Date / Time bupropion HCl AdvReac Nausea & Verified 08/22/20 20:00 [From Wellbutrin] Vomiting desvenlafaxine [From Pristiq] AdvReac Confusion Verified 08/22/20 20:00 varenicline [From Chantix] AdvReac Rash/Hives Verified 08/22/20 20:00 Review of Systems ROS Statement: Those systems with pertinent positive or pertinent negative responses have been documented in the HPI. ROS Other: All systems not noted in ROS Statement are negative. Past Medical History Past Medical History: Asthma, Hypertension Additional Past Medical History / Comment(s): OVARIAN CYSTS, migraines, back pain, History of Any Multi-Drug Resistant Organisms: None Reported Past Surgical History: Section, Tubal Ligation Past Psychological History: Anxiety, Bipolar, Depression Smoking Status: Current every day smoker Past Alcohol Use History: None Reported Past Drug Use History: None Reported, Marijuana General Exam - General Exam Comments Initial Comments: General: The patient is awake and alert, in no distress Eye: +3 mm pupils are equal, round and reactive to light, extra-ocular movements are intact. No nystagmus. There is normal conjunctiva bilaterally. No signs of icterus. Ears, nose, mouth and throat: There are moist mucous membranes and no oral lesions. Neck: The neck is supple, there is no tenderness or JVD. Nuchal rigidity. Cardiovascular: There is a regular rate and rhythm. No murmur, rub or gallop is appreciated. Respiratory: Lungs are clear to auscultation, respirations are non-labored, breath sounds are equal. No wheezes, stridor, rales, or rhonchi. Gastrointestinal: Soft, non-distended, non-tender abdomen without masses or organomegaly noted. There is no rebound or guarding present. Musculoskeletal: Normal ROM, no tenderness. Strength 5/5 of the UE and LE b/l. Sensation intact of the UE and LE b/l. Radial pulses equal bilaterally 2+. Neurological: A&O x 3. CN II-XII intact, There are no obvious motor or sensory deficits. Coordination appears grossly intact. Speech is normal. No pronator drift no lower extremity drift. patient finger to nose and gait and smooth and coordinated. Skin: Skin is warm and dry and no rashes or lesions are noted. Psychiatric: Cooperative, appropriate mood & affect, normal judgment. Limitations: no limitations Course Vital Signs 08/22/20 08/22/20 08/22/20 19:58 21:00 21:38 Temperature 98.7 F 97.8 F Pulse Rate 86 87 81 Respiratory 18 19 17 Rate Blood Pressure 135/76 129/87 118/87 O2 Sat by Pulse 98 100 100 Oximetry Medical Decision Making - Medical Decision Making Pt with hx of chronic migraines presenting for breath through headache. Patient has no focalized neurological deficits. Denies sudden onset or this being the worst headache of her life. Patient given migraine cocktail, on re-evaluation pt requesting discharge. Discussed appropriate f/u, return parameters and pateitn discharged appearing well. Improvement of headache. Disposition Clinical Impression: Headache Disposition: HOME SELF-CARE Condition: Good Instructions (If sedation given, give patient instructions): Acute Headache (ED) Additional Instructions: Please use medication as discussed. Please follow-up with family doctor in the next 2 days. Please return to emergency room if the symptoms increase or worsen or for any other concerns. Is patient prescribed a controlled substance at d/c from ED?: No Referrals: Breanna Mcguire MD [Primary Care Provider] - 1-2 days Time of Disposition: 21:30
[2020-08-22 21:40] VITALS: BP 118/87; PULSE 81; RESP 17; TEMP 97.8
== END 2020-08-22 21:38 | disposition home or self-care (01) ==
LOC: EC 19:46
DX: G43.909 Migraine, unspecified, not intractable, without status migrainosus (principal); J45.909 Unspecified asthma, uncomplicated; I10 Essential (primary) hypertension; F41.9 Anxiety disorder, unspecified; F31.9 Bipolar disorder, unspecified; F17.200 Nicotine dependence, unspecified, uncomplicated; Z79.51 Long term (current) use of inhaled steroids; Z79.899 Other long term (current) drug therapy; Z88.8 Allergy status to other drugs, medicaments and biological substances
CPT/HCPCS: 99283; 96374; 96375 ×2; J1200; J2405; J1885

== ENCOUNTER → 2021-02-06 | Outpatient (CLI) | payer OTHER ==
--- NOTE | 2021-02-06 14:25 | XR ---
EXAMINATION TYPE: XR lumbosacral spine min 4V DATE OF EXAM: 02/06/2021 CLINICAL HISTORY: Pain radiating down both legs. TECHNIQUE: Frontal, lateral, and oblique images of the lumbar spine are obtained. COMPARISON: Prior x-ray August 22, 2015. Prior CT abdomen and pelvis December 07, 2019. FINDINGS: There are 5 lumbar type vertebral bodies redemonstrated. The lumbar spine redemonstrates stable and satisfactory alignment without evidence of acute fracture or dislocation. Vertebral body h eights and disk space heights remain within normal limits. The oblique images appear within normal limits. Persistent mild facet arthropathy lower lumbar spine. The overlying soft tissue remains unre markable. IMPRESSION: As above.
== END | disposition home or self-care (01) ==
LOC: RADXRMAIN 13:50
PROVIDERS: ATTEND Internal Medicine
DX: M54.5 Low back pain (principal)
CPT/HCPCS: 72110

== ENCOUNTER → 2021-02-10 | Outpatient (CLI) | payer BC, OTHER ==
--- NOTE | 2021-02-12 18:32 | MR ---
EXAMINATION TYPE: MR lumbar spine wo con DATE OF EXAM: 02/10/2021 COMPARISON: 03/20/2018 HISTORY: 35-year-old female M54.5, low back pain, right hip pain TECHNIQUE: Multiplanar, multisequence images of the lumbar spine were acquired. FINDINGS: Vertebral body heights are preserved and alignment is maintained. Mild early intervertebral disc desiccation lower lumbar spine similar compared to 2018. There is a ri ght intraforaminal annular fissure at L4-L5 which appears new. No suspicious bone marrow placement. Conus medullaris is normal. No focal disc herniation or spinal canal stenosis. Very mild early facet degenerative change lower lumbar spine. On the left, bulging disc contributes to mild left neural foraminal stenosis at L5-S1. On the right, bulging disc contribute to minimal inferior foraminal narrowing at both L4-L5 and L5-S1 . Again, the right intraforaminal annular fissure is noted at L4-L5. A couple layering gallstones are suggested measuring up to 8 mm. Otherwise, no prevertebral or parave rtebral soft tissue abnormality seen. IMPRESSION: 1. No large focal disc herniation or significant spinal canal stenosis. 2. Mild degenerative intervertebral disc desiccation lower lumbar spine is similar to 2018. Minimal e juliane degenerative changes of the facet joints in the lower lumbar spine as well. 3. Minimal inferior foraminal narrowing on the right at both L4-L5 and L5-S1. However, at L4-L5, ther e is a new intraforaminal annular fissure noted. Mild left neuroforaminal stenosis at L5-S1.
== END | disposition home or self-care (01) ==
LOC: RADMRIMAIN 10:28
PROVIDERS: ATTEND Internal Medicine
DX: M51.26 Other intervertebral disc displacement, lumbar region (principal); M47.816 Spondylosis without myelopathy or radiculopathy, lumbar region; M99.73 Connective tissue and disc stenosis of intervertebral foramina of lumbar region
CPT/HCPCS: 72148

== ENCOUNTER 2021-11-12 18:36 | Emergency (ER) | payer BC, OTHER ==
[2021-11-12 19:07] VITALS: BP 134/91; PULSE 91; RESP 18; TEMP 98.7
--- NOTE | 2021-11-12 20:33 | ED ---
General Adult HPI - General Chief complaint: ENT Stated complaint: Covid exposure Source: patient, RN notes reviewed Mode of arrival: ambulatory Limitations: no limitations - History of Present Illness Initial comments: 36-year-old female presents to the emergency department requesting a Covid test. Patient states both of her children have tested positive for Covid, however, r eports she was sick 2-3 weeks ago and symptoms have resolved. Patient denies fever, chills, headache, chest pain, shortness of breath, difficulty breathing, abdominal pain, nausea, vomiting, diarrhea, or dysuria. - Related Data Home Medications Medication Instructions Recorded Confirmed ALPRAZolam [Xanax] 0.5 mg PO QID PRN 03/31/14 03/26/19 ARIPiprazole [Abilify] 15 mg PO DAILY 08/01/14 03/26/19 Hydrocodone/Acetaminophen 1 tab PO QID PRN 08/13/14 03/26/19 [Hydrocodon-Acetaminoph 7.5-325] Omeprazole [PriLOSEC] 20 mg PO BID PRN 08/13/14 03/26/19 Citalopram Hydrobromide [CeleXA] 30 mg PO DAILY 01/30/16 03/26/19 Albuterol Inhaler (Mhu) [Ventolin 2 puff INHALATION RT-Q6H PRN 09/11/16 03/26/19 Hfa Inhaler] diphenhydrAMINE HCL [Benadryl] 50 mg PO BID PRN 09/12/16 03/26/19 SUMAtriptan succinate [Imitrex] 25 mg PO BID PRN 11/14/16 03/26/19 Ibuprofen [Motrin Ib] 400 mg PO Q6H PRN 03/26/19 03/26/19 Topiramate [Trokendi Xr] 25 mg PO DAILY 03/26/19 03/26/19 Previous Rx's Medication Instructions Recorded Ibuprofen [Motrin] 600 mg PO Q8HR PRN #20 tab 12/07/19 Allergies Allergy/AdvReac Type Severity Reaction Status Date / Time bupropion HCl AdvReac Nausea & Verified 11/12/21 19:07 [From Wellbutrin] Vomiting desvenlafaxine [From Pristiq] AdvReac Confusion Verified 11/12/21 19:07 varenicline [From Chantix] AdvReac Rash/Hives Verified 11/12/21 19:07 Review of Systems ROS Statement: Those systems with pertinent positive or pertinent negative responses have been documented in the HPI. ROS Other: All systems not noted in ROS Statement are negative. Past Medical History Past Medical History: Asthma, Hypertension Additional Past Medical History / Comment(s): OVARIAN CYSTS, migraines, back pain, History of Any Multi-Drug Resistant Organisms: None Reported Past Surgical History: Section, Tubal Ligation Past Psychological History: Anxiety, Bipolar, Depression Smoking Status: Current every day smoker Past Alcohol Use History: None Reported Past Drug Use History: None Reported, Marijuana General Exam Limitations: no limitations General appearance: alert, in no apparent distress ENT exam: Present: normal exam, normal oropharynx, mucous membranes moist Respiratory exam: Present: normal lung sounds bilaterally. Absent: respiratory distress, wheezes, rales, rhonchi, stridor Cardiovascular Exam: Present: regular rate, normal rhythm, normal heart sounds. Absent: systolic murmur, diastolic murmur, rubs, gallop, clicks Neurological exam: Present: alert, oriented X3, CN II-XII intact Psychiatric exam: Present: normal affect, normal mood Skin exam: Present: warm, dry, intact, normal color. Absent: rash Course Vital Signs 11/12/21 19:04 Temperature 98.7 F Pulse Rate 91 Respiratory 18 Rate Blood Pressure 134/91 O2 Sat by Pulse 98 Oximetry Medical Decision Making - Medical Decision Making 36-year-old female presents to the emergency department requesting occulted test. Upon exam, patient is well-appearing and in no acute distress. Vital signs are stable. Patient's physical exam findings are unremarkable. Covid test is negative. Patient will be instructed to exercise a high degree of caution with both of her children being positive. Discussed concerning symptoms and recommended obtaining a home test. Return parameters were reviewed with patient. She verbalizes understanding and agrees with this plan. Patient's care was discussed with my attending . - Lab Data Lab Results 11/12/21 Range/Units 19:08 Coronavirus (PCR) Not Detected (Not Detectd) Disposition Clinical Impression: Exposure to COVID-19 virus Disposition: HOME SELF-CARE Condition: Stable Instructions (If sedation given, give patient instructions): Normal Exam (ED) Additional Instructions: Exercise a high degree of caution with your Covid exposures at home. If you develop symptoms such as headache, body aches, fever, or cough, you should retest. Home test kits are reliable option. Follow-up with your PCP for recheck if needed. Current the emergency department with any concerns. Is patient prescribed a controlled substance at d/c from ED?: No Referrals: Breanna Mcguire MD [Primary Care Provider] - 1-2 days Time of Disposition: 20:33
== END 2021-11-12 20:51 | disposition home or self-care (01) ==
LOC: EC 18:36
DX: Z20.822 Contact with and (suspected) exposure to COVID-19 (principal); J45.909 Unspecified asthma, uncomplicated; I10 Essential (primary) hypertension; F17.200 Nicotine dependence, unspecified, uncomplicated; F41.9 Anxiety disorder, unspecified; F31.9 Bipolar disorder, unspecified; F12.90 Cannabis use, unspecified, uncomplicated; G43.909 Migraine, unspecified, not intractable, without status migrainosus
CPT/HCPCS: 87635; 99282

== ENCOUNTER 2022-05-08 09:45 | Emergency (ER) | payer OTHER ==
[2022-05-08] MEDS ORDERED: METOCLOPRAMIDE 5 MG/ML 2 ML VIAL IM STA (10:42)
[2022-05-08] MEDS ORDERED: KETOROLAC 15 MG/ML 1 ML VIAL IM STA (10:45)
[2022-05-08 11:02] VITALS: BP 148/87; PULSE 79; RESP 20; TEMP 98.1
--- NOTE | 2022-05-08 11:09 | ED ---
General Adult HPI - General Chief complaint: Recheck/Abnormal Lab/Rx Stated complaint: Accidental Overdose Time Seen by Provider: 05/08/22 10:11 Source: patient Mode of arrival: ambulatory Limitations: no limitations - History of Present Illness Initial comments: Patient is a 36-year-old female presenting with chief complaint of "I took too much of my Imitrex". Patient states she's had a migraine for a few days, states that she took 100 mg of Imitrex at 5 PM yesterday, she took 100 mg of Imitrex in the middle of the night with the Benadryl, and this morning she took another Imitrex at about 9 AM. Patient states she feels fine at this time, however she wants to make sure she is able to take her other medications. She denies any chest pain, shortness of breath, fever, chills, nausea, vomiting, vision or hearing changes, abdominal pain, hematochezia, melena, tremors, muscle soreness. - Related Data Home Medications Medication Instructions Recorded Confirmed ALPRAZolam [Xanax] 0.5 mg PO QID PRN 03/31/14 03/26/19 ARIPiprazole [Abilify] 15 mg PO DAILY 08/01/14 03/26/19 Hydrocodone/Acetaminophen 1 tab PO QID PRN 08/13/14 03/26/19 [Hydrocodon-Acetaminoph 7.5-325] Omeprazole [PriLOSEC] 20 mg PO BID PRN 08/13/14 03/26/19 Citalopram Hydrobromide [CeleXA] 30 mg PO DAILY 01/30/16 03/26/19 Albuterol Inhaler [Ventolin Hfa 2 puff INHALATION RT-Q6H PRN 09/11/16 03/26/19 Inhaler] diphenhydrAMINE HCL [Benadryl] 50 mg PO BID PRN 09/12/16 03/26/19 SUMAtriptan succinate [Imitrex] 25 mg PO BID PRN 11/14/16 03/26/19 Ibuprofen [Motrin Ib] 400 mg PO Q6H PRN 03/26/19 03/26/19 Topiramate [Trokendi Xr] 25 mg PO DAILY 03/26/19 03/26/19 Previous Rx's Medication Instructions Recorded Ibuprofen [Motrin] 600 mg PO Q8HR PRN #20 tab 12/07/19 Allergies Allergy/AdvReac Type Severity Reaction Status Date / Time varenicline [From Chantix] Allergy Rash/Hives Verified 05/08/22 11:16 bupropion HCl AdvReac Nausea & Verified 05/08/22 11:16 [From Wellbutrin] Vomiting desvenlafaxine [From Pristiq] AdvReac Confusion Verified 05/08/22 11:16 Review of Systems ROS Statement: Those systems with pertinent positive or pertinent negative responses have been documented in the HPI. ROS Other: All systems not noted in ROS Statement are negative. Past Medical History Past Medical History: Asthma, Hypertension Additional Past Medical History / Comment(s): OVARIAN CYSTS, migraines, back pain, History of Any Multi-Drug Resistant Organisms: None Reported Past Surgical History: Section, Tubal Ligation Past Psychological History: Anxiety, Bipolar, Depression Smoking Status: Current every day smoker Past Alcohol Use History: None Reported Past Drug Use History: None Reported, Marijuana General Exam Limitations: no limitations General appearance: alert, in no apparent distress Head exam: Present: atraumatic, normocephalic, normal inspection Eye exam: Present: normal appearance, PERRL, EOMI. Absent: scleral icterus, periorbital swelling Neck exam: Present: normal inspection Respiratory exam: Present: normal lung sounds bilaterally. Absent: respiratory distress, wheezes, rales, rhonchi, stridor Cardiovascular Exam: Present: regular rate, normal rhythm, normal heart sounds. Absent: systolic murmur, diastolic murmur, rubs, gallop, clicks Back exam: Present: normal inspection Neurological exam: Present: alert, oriented X3, CN II-XII intact Expanded Patient oriented to: Present: person, place, time Speech: Present: fluid speech Cranial nerves: EOM's Intact: Normal, Facial Sensation: Normal Cerebellar function: Finger to Nose: Normal, Heel to [place]: Normal Sensory exam: Upper Extremity Light Touch: Normal, Lower Extremity Light Touch: Normal Motor strength exam: RUE: 5, LUE: 5, RLE: 5, LLE: 5 Eye Response: (4) open spontaneously Motor Response: (6) obeys commands Verbal Response: (5) oriented [place] Total: 15 Psychiatric exam: Present: normal affect, normal mood Skin exam: Present: warm, dry, intact, normal color. Absent: rash Course Vital Signs 05/08/22 05/08/22 09:59 11:00 Temperature 98 F 98.1 F Pulse Rate 82 79 Respiratory 18 20 Rate Blood Pressure 137/89 148/87 O2 Sat by Pulse 98 99 Oximetry Medical Decision Making - Medical Decision Making Patient is a 36-year-old female presenting with chief complaint of "I took too much of my Imitrex". Patient took about 300 mg within the last 24 hours due to a migraine. Patient states that she has no symptoms at this time. On examination there are no focal neurological deficits, vitals are WNL, heart and lungs are clear to auscultation. I spoke with poison control who advised that the #1 concern at this time was for serotonin syndrome, they state that given her vitals and her presentation she is likely not at risk for this at this time. They advise discontinuing the Imitrex and Benadryl. I discussed these findings with the patient. She was agreeable to this plan. Patient was given Toradol for Reglan for her headache. She appears stable for discharge with outpatient follow-up at this time. Follow-up with PCP in one to 2 days. Report back to ER if any new or worsening symptoms. Discussed return parameters answered all questions. Provided the patient with information on serotonin syndrome. Patient conveyed verbal understanding and agreed to the plan. I discussed this case with my attending Dr. Rodriguez Disposition Clinical Impression: Accidental overdose Disposition: HOME SELF-CARE Condition: Good Instructions (If sedation given, give patient instructions): Migraine Headache (ED), Serotonin Syndrome (ED) Additional Instructions: Follow-up with PCP in one to 2 days. Report back to ER with any new or worsening symptoms. Monitor for signs of serotonin syndrome which are attached to this document. Discontinue the use of Imitrex and Benadryl for the next 24 hours. Is patient prescribed a controlled substance at d/c from ED?: No Referrals: Breanna Mcguire MD [Primary Care Provider] - 1-2 days Time of Disposition: 11:09
== END 2022-05-08 11:50 | disposition home or self-care (01) ==
LOC: EC 09:45
DX: T39.8X1A Poisoning by other nonopioid analgesics and antipyretics, not elsewhere classified, accidental (unintentional), initial encounter (principal); I10 Essential (primary) hypertension; J45.909 Unspecified asthma, uncomplicated; F31.9 Bipolar disorder, unspecified; F41.9 Anxiety disorder, unspecified; F17.200 Nicotine dependence, unspecified, uncomplicated; Z79.51 Long term (current) use of inhaled steroids; Z79.899 Other long term (current) drug therapy
CPT/HCPCS: 99283; 96372 ×2; J2765; J1885

== ENCOUNTER 2022-07-10 02:43 | Emergency (ER) | payer OTHER ==
[2022-07-10 03:01] VITALS: BP 131/89; PULSE 74; RESP 22; TEMP 97.5
[2022-07-10] MEDS ORDERED: METOCLOPRAMIDE 5 MG/ML 2 ML VIAL IM STA (03:11)
[2022-07-10] MEDS ORDERED: KETOROLAC 15 MG/ML 1 ML VIAL IM STA (03:11)
[2022-07-10] MEDS ORDERED: diphenhydrAMINE 50 MG/ML 1 ML VIAL IM STA (03:11)
--- NOTE | 2022-07-10 03:22 | ED ---
Headache HPI - General Chief Complaint: Headache Stated Complaint: Headache Time Seen by Provider: 07/10/22 02:56 Source: RN notes reviewed Limitations: no limitations - History of Present Illness Initial Comments: This is a pleasant 37-year-old female with a history of migraine headaches. She has had a migraine headache for going on about 2 days. Patient has had he adaches such as this previously. Patient describing a throbbing headache behind her eyes. Patient takes Imitrex, usually takes ketorolac but was out of that, and something states Benadryl at home. Patient took her to Imitrex in a 24-hour period and still has the headache. Denying any fever. Denies any vision or hearing changes other than the photophobia. Patient does not have auras. She denies any dizziness. No vertigo. No weakness. No numbness or tingling NAUSEA but no vomiting no fever or chills, no changes in vision or hearing, no sore throat or difficulty with speech, no neck pain, no chest pain or shortness of breath, no abdominal pain, no changes in urination or bowel movements, no numbness or tingling, no extremity pain, no skin rashes or lesions. Past medical, surgical, social, and family history reviewed. MD Complaint: headache - Related Data Home Medications Medication Instructions Recorded Confirmed ALPRAZolam [Xanax] 0.5 mg PO QID PRN 03/31/14 03/26/19 ARIPiprazole [Abilify] 15 mg PO DAILY 08/01/14 03/26/19 Hydrocodone/Acetaminophen 1 tab PO QID PRN 08/13/14 03/26/19 [Hydrocodon-Acetaminoph 7.5-325] Omeprazole [PriLOSEC] 20 mg PO BID PRN 08/13/14 03/26/19 Citalopram Hydrobromide [CeleXA] 30 mg PO DAILY 01/30/16 03/26/19 Albuterol Inhaler [Ventolin Hfa 2 puff INHALATION RT-Q6H PRN 09/11/16 03/26/19 Inhaler] diphenhydrAMINE HCL [Benadryl] 50 mg PO BID PRN 09/12/16 03/26/19 SUMAtriptan succinate [Imitrex] 25 mg PO BID PRN 11/14/16 03/26/19 Ibuprofen [Motrin Ib] 400 mg PO Q6H PRN 03/26/19 03/26/19 Topiramate [Trokendi Xr] 25 mg PO DAILY 03/26/19 03/26/19 Previous Rx's Medication Instructions Recorded Ibuprofen [Motrin] 600 mg PO Q8HR PRN #20 tab 12/07/19 Allergies Allergy/AdvReac Type Severity Reaction Status Date / Time varenicline [From Chantix] Allergy Rash/Hives Verified 07/10/22 03:01 bupropion HCl AdvReac Nausea & Verified 07/10/22 03:01 [From Wellbutrin] Vomiting desvenlafaxine [From Pristiq] AdvReac Confusion Verified 07/10/22 03:01 Review of Systems ROS Statement: Those systems with pertinent positive or pertinent negative responses have been documented in the HPI. ROS Other: All systems not noted in ROS Statement are negative. Past Medical History Past Medical History: Asthma, GERD/Reflux, Hypertension Additional Past Medical History / Comment(s): OVARIAN CYSTS, migraines, back pain, bipolar History of Any Multi-Drug Resistant Organisms: None Reported Past Surgical History: Section, Cholecystectomy, Tubal Ligation Past Psychological History: Anxiety, Bipolar, Depression Smoking Status: Current every day smoker Past Alcohol Use History: None Reported Past Drug Use History: None Reported, Marijuana General Exam - General Exam Comments Initial Comments: Vital signs reviewed, patient does not appear to be ill or toxic Limitations: no limitations General appearance: in distress (Minimal) Head exam: Present: atraumatic, normocephalic, normal inspection Eye exam: Present: normal appearance, PERRL, EOMI. Absent: scleral icterus, conjunctival injection, periorbital swelling ENT exam: Present: normal exam, normal oropharynx, mucous membranes dry, mucous membranes moist, normal external ear exam Neck exam: Present: normal inspection, full ROM, other (Negative Brudzinski's, no nuchal rigidity). Absent: tenderness, meningismus, lymphadenopathy Respiratory exam: Present: normal lung sounds bilaterally. Absent: respiratory distress, wheezes, rales, rhonchi, stridor, chest wall tenderness, accessory mu scle use Cardiovascular Exam: Present: regular rate, normal rhythm, normal heart sounds. Absent: systolic murmur, diastolic murmur, rubs, gallop, clicks GI/Abdominal exam: Present: soft, normal bowel sounds. Absent: distended, tenderness, guarding, rebound, rigid Extremities exam: Present: normal inspection, full ROM, normal capillary refill. Absent: tenderness, pedal edema, joint swelling, calf tenderness Back exam: Present: normal inspection Neurological exam: Present: alert, oriented X3, CN II-XII intact, normal gait. Absent: motor sensory deficit, reflexes normal Expanded Patient oriented to: Present: person, place, time Speech: Present: fluid speech Cranial nerves: EOM's Intact: Normal, Gag Reflex: Normal, Tongue Deviation: Normal, Nystagmus: Normal, Facial Sensation: Normal, Facial Palsy with Forehead Movement: Normal, Facial Palsy without Forehead Movement: Normal Motor strength exam: RUE: 5, LUE: 5, RLE: 5, LLE: 5 Eye Response: (4) open spontaneously Motor Response: (6) obeys commands Verbal Response: (5) oriented [place] Total: 15 Psychiatric exam: Present: normal affect, normal mood Skin exam: Present: warm, dry, intact, normal color. Absent: rash Course Vital Signs 07/10/22 02:56 Temperature 97.5 F L Pulse Rate 74 Respiratory 22 Rate Blood Pressure 131/89 O2 Sat by Pulse 99 Oximetry - Reevaluation(s) Reevaluation #1: 07/10/22 03:54 Medical record is reviewed Symptoms are improved here in the emergency department , Neurologically intact, alert 904, cranial nerves II through XII grossly intact Patient in no distress Medical Decision Making - Medical Decision Making Patient presents with a migraine headache which is consistent with what she is a sprints in the past. Does not appear to be ill or toxic. Has no focal neurologic deficits. We'll treat with the migraine cocktail of diphenhydramine, metoclopramide, and ketorolac. An for discharge. Patient was told to return to the ER for any signs or symptoms worsen. Told to return immediately if any other problems arise. All questions answered. Treatment plan discussed. Patient in agreement Every effort has been made to ensure accuracy of this dictation. However, due to the limitations of electronic medical records and dictation devices, errors in charting still occur. The case was discussed in detail with ED attending physician. Presentation, findings, treatment plan discussed in detail. Hooker Up Dr. Helmreich Disposition Clinical Impression: Migraine headache Disposition: HOME SELF-CARE Condition: Good Instructions (If sedation given, give patient instructions): Acute Headache (ED) Additional Instructions: Follow-up with your regular physician as directed. Return to the ER immediately if any symptoms worsen, new symptoms arise, or any other problems develop. Is patient prescribed a controlled substance at d/c from ED?: No Referrals: Breanna Mcguire MD [Primary Care Provider] - 07/13/22 Time of Disposition: 03:54
== END 2022-07-10 04:15 | disposition home or self-care (01) ==
LOC: EC 02:43
DX: G43.909 Migraine, unspecified, not intractable, without status migrainosus (principal); I10 Essential (primary) hypertension; J45.909 Unspecified asthma, uncomplicated; F17.200 Nicotine dependence, unspecified, uncomplicated; K21.9 Gastro-esophageal reflux disease without esophagitis; Z79.899 Other long term (current) drug therapy; Z79.51 Long term (current) use of inhaled steroids; Z88.8 Allergy status to other drugs, medicaments and biological substances
CPT/HCPCS: 96372 ×2; 99283 ×2; J1200; J2765; J1885

== ENCOUNTER 2022-08-18 03:49 | Emergency (ER) | payer OTHER, BC ==
[2022-08-18 03:53] VITALS: BP 118/91; PULSE 74; RESP 18; TEMP 98.1
[2022-08-18] MEDS ORDERED: KETOROLAC 15 MG/ML 1 ML VIAL IVP STA (04:03)
[2022-08-18] MEDS ORDERED: SODIUM CHLORIDE 0.9% 1,000 ML IV STA (04:03)
[2022-08-18] MEDS ORDERED: diphenhydrAMINE 50 MG/ML 1 ML VIAL IVP STA (04:03)
[2022-08-18] MEDS ORDERED: PROCHLORPERAZINE INJ 10 MG/2 ML VIAL IVP STA (04:03)
--- NOTE | 2022-08-18 04:06 | ED ---
General Adult HPI - General Chief complaint: Headache Stated complaint: Migraine Time Seen by Provider: 08/18/22 03:57 Source: patient, RN notes reviewed, old records reviewed Mode of arrival: ambulatory Limitations: no limitations - History of Present Illness Initial comments: Patient is a 37-year-old female with past medical history remarkable for escobar antony, asthma, high blood pressure presents emergency Department complaining of a typical migraine. She does not get auras. States she has her typical frontal headache. It is bilateral. Attempted Imitrex at home without success. Denies nausea or vomiting. Denies weakness or numbness. States this is not the worst headache of her life. This the typical migraine for her. States she is not p regnant. Has no other to seated symptoms at this time. Would like a migraine cocktail. Denies fevers, chills, sick contacts. - Related Data Home Medications Medication Instructions Recorded Confirmed ALPRAZolam [Xanax] 0.5 mg PO QID PRN 03/31/14 03/26/19 ARIPiprazole [Abilify] 15 mg PO DAILY 08/01/14 03/26/19 Hydrocodone/Acetaminophen 1 tab PO QID PRN 08/13/14 03/26/19 [Hydrocodon-Acetaminoph 7.5-325] Omeprazole [PriLOSEC] 20 mg PO BID PRN 08/13/14 03/26/19 Citalopram Hydrobromide [CeleXA] 30 mg PO DAILY 01/30/16 03/26/19 Albuterol Inhaler [Ventolin Hfa 2 puff INHALATION RT-Q6H PRN 09/11/16 03/26/19 Inhaler] diphenhydrAMINE HCL [Benadryl] 50 mg PO BID PRN 09/12/16 03/26/19 SUMAtriptan succinate [Imitrex] 25 mg PO BID PRN 11/14/16 03/26/19 Ibuprofen [Motrin Ib] 400 mg PO Q6H PRN 03/26/19 03/26/19 Topiramate [Trokendi Xr] 25 mg PO DAILY 03/26/19 03/26/19 Previous Rx's Medication Instructions Recorded Ibuprofen [Motrin] 600 mg PO Q8HR PRN #20 tab 12/07/19 Allergies Allergy/AdvReac Type Severity Reaction Status Date / Time varenicline [From Chantix] Allergy Rash/Hives Verified 08/18/22 03:53 bupropion HCl AdvReac Nausea & Verified 08/18/22 03:53 [From Wellbutrin] Vomiting desvenlafaxine [From Pristiq] AdvReac Confusion Verified 08/18/22 03:53 Review of Systems ROS Statement: Those systems with pertinent positive or pertinent negative responses have been documented in the HPI. Review of Systems: CONST: Denies fever EYES: Denies blurry vision ENT: Denies nasal congestion C/V: Denies Chest pain RESP: Denies shortness of breath GI: Denies abdominal pain : Denies dysuria SKIN: Denies rash. MSK: Denies joint pain. NEURO: Endorses migraine ROS Other: All systems not noted in ROS Statement are negative. Past Medical History Past Medical History: Asthma, GERD/Reflux, Hypertension Additional Past Medical History / Comment(s): OVARIAN CYSTS, migraines, back pain, bipolar History of Any Multi-Drug Resistant Organisms: None Reported Past Surgical History: Section, Cholecystectomy, Tubal Ligation Past Psychological History: Anxiety, Bipolar, Depression Smoking Status: Current every day smoker Past Alcohol Use History: None Reported Past Drug Use History: None Reported, Marijuana General Exam - General Exam Comments Initial Comments: General: Appears in no acute distress. HEAD: Normal with no signs of head trauma. EYES: PERRLA, EOMI, conjunctiva normal, no discharge. Pupils are 3 mm and equal bilaterally. ENT: Hearing grossly intact, normal oropharynx. RESPIRATORY: Clear breath sounds bilaterally. No wheezes, rales, or rhonchi. C/V: And rhythm. S1 and S2 auscultated. Peripheral pulses 2+ intact. ABD: Abd is soft, nontender, nondistended EXT: Normal range of motion, no obvious deformity SKIN: No rashes or lesions observed on exposed skin. NEURO: Alert and oriented x 4. Cranial nerves II-XII intact. No focal sensory or strength deficits. GCS of 15. NIH is 0. Limitations: no limitations Course Vital Signs 08/18/22 03:50 Temperature 98.1 F Pulse Rate 74 Respiratory 18 Rate Blood Pressure 118/91 O2 Sat by Pulse 99 Oximetry Medical Decision Making - Medical Decision Making Based on the patient's presentation and physical exam, she presents complaining of a migraine headache. These are typical for her. Vital signs within acceptable limits. She is requesting a migraine cocktail. I do not believe that we require imaging or laboratory studies at this time. She'll be given a migraine cocktail and assess for improvement. She was in agreement this plan. Following migraine cocktail, patient notified me she would like to go home. She was feeling improved. No symptoms. Headache is resolved. Strict return precautions were discussed. She'll be discharged home in stable condition. I instructed the patient to follow up with their PCP in the next 1-3 days. I explained that the patient should return to the emergency department if they experience any worsening symptoms. Strict return precautions were discussed with the patient. The patient expressed understanding of these instructions. I answered all questions that the patient had. The patient was discharged home in good condition with their prescriptions and follow up information. Disposition Clinical Impression: Migraine Disposition: HOME SELF-CARE Condition: Good Instructions (If sedation given, give patient instructions): Migraine Headache (ED) Is patient prescribed a controlled substance at d/c from ED?: No Referrals: Breanna Mcguire MD [Primary Care Provider] - 1-2 days Time of Disposition: 04:40
== END 2022-08-18 04:45 | disposition home or self-care (01) ==
LOC: EC 03:49
DX: G43.909 Migraine, unspecified, not intractable, without status migrainosus (principal); J45.909 Unspecified asthma, uncomplicated; K21.9 Gastro-esophageal reflux disease without esophagitis; I10 Essential (primary) hypertension; F41.9 Anxiety disorder, unspecified; F31.9 Bipolar disorder, unspecified; F12.90 Cannabis use, unspecified, uncomplicated; F17.200 Nicotine dependence, unspecified, uncomplicated; Z88.8 Allergy status to other drugs, medicaments and biological substances; Z79.51 Long term (current) use of inhaled steroids
CPT/HCPCS: 99284; 96374; 96375 ×2; J1200; J0780; J1885; 99283

== ENCOUNTER 2022-11-06 01:46 | Emergency (ER) | payer BC, OTHER ==
[2022-11-06 02:15] VITALS: BP 148/73; PULSE 76; RESP 16; TEMP 97.7
[2022-11-06] MEDS ORDERED: DEXAMETHASONE SOD PHOSPHATE 10 MG/ML 1 ML VIAL IM STA (02:34)
[2022-11-06] MEDS ORDERED: METOCLOPRAMIDE 5 MG/ML 2 ML VIAL IM STA (02:34)
[2022-11-06] MEDS ORDERED: KETOROLAC 15 MG/ML 1 ML VIAL IM STA (02:34)
--- NOTE | 2022-11-06 02:37 | ED ---
General Adult HPI - General Chief complaint: Headache Stated complaint: migraine Time Seen by Provider: 11/06/22 02:23 Source: patient Mode of arrival: ambulatory Limitations: no limitations - History of Present Illness Initial comments: this is a 37-year-old female with a past medical history including migraine, anxiety and depression presents emergency department for a headache. The patient stated this is typical for her and she was taking her Imitrex earlier today but stated thatthe headache was persistent and she came to the [facility] department because when this happens she needs more medications. The patient stated that is typical for her migraine focused on the anterior portion of her head without any photophobia or phonophobia. The patient did report some mild nausea and did take one tablet of Zofran at home. The patient was resting in bed comfortably however did not complain of any other acute distress. The patient denied any nausea, vomiting, fevers and chills. - Related Data Home Medications Medication Instructions Recorded Confirmed ALPRAZolam [Xanax] 0.5 mg PO QID PRN 03/31/14 03/26/19 ARIPiprazole [Abilify] 15 mg PO DAILY 08/01/14 03/26/19 Hydrocodone/Acetaminophen 1 tab PO QID PRN 08/13/14 03/26/19 [Hydrocodon-Acetaminoph 7.5-325] Omeprazole [PriLOSEC] 20 mg PO BID PRN 08/13/14 03/26/19 Citalopram Hydrobromide [CeleXA] 30 mg PO DAILY 01/30/16 03/26/19 Albuterol Inhaler [Ventolin Hfa 2 puff INHALATION RT-Q6H PRN 09/11/16 03/26/19 Inhaler] diphenhydrAMINE HCL [Benadryl] 50 mg PO BID PRN 09/12/16 03/26/19 SUMAtriptan succinate [Imitrex] 25 mg PO BID PRN 11/14/16 03/26/19 Ibuprofen [Motrin Ib] 400 mg PO Q6H PRN 03/26/19 03/26/19 Topiramate [Trokendi Xr] 25 mg PO DAILY 03/26/19 03/26/19 Previous Rx's Medication Instructions Recorded Ibuprofen [Motrin] 600 mg PO Q8HR PRN #20 tab 12/07/19 Allergies Allergy/AdvReac Type Severity Reaction Status Date / Time varenicline [From Chantix] Allergy Rash/Hives Verified 11/06/22 02:12 bupropion HCl AdvReac Nausea & Verified 11/06/22 02:12 [From Wellbutrin] Vomiting desvenlafaxine [From Pristiq] AdvReac Confusion Verified 11/06/22 02:12 Review of Systems ROS Statement: Those systems with pertinent positive or pertinent negative responses have been documented in the HPI. ROS Other: All systems not noted in ROS Statement are negative. Past Medical History Past Medical History: Asthma, GERD/Reflux, Hypertension Additional Past Medical History / Comment(s): OVARIAN CYSTS, migraines, back p ain, bipolar History of Any Multi-Drug Resistant Organisms: None Reported Past Surgical History: Section, Cholecystectomy, Tubal Ligation Past Psychological History: Anxiety, Bipolar, Depression Smoking Status: Current every day smoker Past Alcohol Use History: None Reported Past Drug Use History: None Reported, Marijuana General Exam Limitations: no limitations General appearance: alert, in no apparent distress Head exam: Present: atraumatic, normocephalic, normal inspection Eye exam: Present: normal appearance, PERRL Pupils: Present: normal accommodation ENT exam: Present: normal exam, normal oropharynx, mucous membranes moist Neck exam: Present: normal inspection, full ROM Respiratory exam: Present: normal lung sounds bilaterally Cardiovascular Exam: Present: regular rate, normal rhythm, normal heart sounds GI/Abdominal exam: Present: soft, normal bowel sounds Extremities exam: Present: normal inspection, full ROM Back exam: Present: normal inspection, full ROM Neurological exam: Present: alert, oriented X3, CN II-XII intact Psychiatric exam: Present: normal affect, normal mood Skin exam: Present: warm, dry Course Vital Signs 11/06/22 02:12 Temperature 97.7 F Pulse Rate 76 Respiratory 16 Rate Blood Pressure 148/73 O2 Sat by Pulse 97 Oximetry Medical Decision Making - Medical Decision Making Was pt. sent in by a medical professional or institution (, PA, OPTICAL BRIGHTENER MAKER HELPER, urgent care, hospital, or [place] health [place] facility...) When possible be specific @ -No Did you speak to anyone other than the patient for history (EMS, parent, family, police, friend...)? What history was obtained from this source @ -No Did you review nursing and triage notes (agree or disagree)? Why? @ -I reviewed and agree with nursing and triage notes Were old charts reviewed (outside hosp., previous admission, EMS record, old E KG, old radiological studies, urgent care reports/EKG's, [place] health [facility] facility records)? Report findings @ -No old charts were reviewed Differential Diagnosis (chest pain, altered mental status, abdominal pain women, abdominal pain men, vaginal bleeding, weakness, fever, dyspnea, syncope, headache, dizziness, GI bleed, back pain, seizure, CVA, palpatations, mental hea lth)? @ -Headache, migraine EKG interpreted by me (3pts min.). @ -None X-rays interpreted by me (1pt min.). @ -None done CT interpreted by me (1pt min.). @ -None done U/S interpreted by me (1pt. min.). @ -None done What testing was considered but not performed or refused? (CT, X-rays, U/S, labs)? Why? @ -None What meds were considered but not given or refused? Why? @ -None Did you discuss the management of the patient with other professionals (professionals i.e. , PA, OPTICAL BRIGHTENER MAKER HELPER, lab, RT, psych nurse, pediatric social worker, pan cleaner, teacher, chief informatics officer, business case analyst)? Give summary @ -No Was smoking cessation discussed for >3mins.? @ -Yes Was critical care preformed (if so, how long)? @ -No Were there social determinants of health that impacted care today? How? (Homelessness, low income, unemployed, alcoholism, drug addiction, transportation, low edu. Level, literacy, decrease access to med. care, alf, rehab)? @ -No Was there de-escalation of care discussed even if they declined (Discuss DNR or withdrawal of care, Hospice)? DNR status @ -No What co-morbidities impacted this encounter? (DM, HTN, Smoking, COPD, CAD, Cancer, CVA, ARF, Chemo, Hep., AIDS, mental health diagnosis, sleep apnea, morbid obesity)? @ -Previous migraine, anxiety, depression Was patient admitted / discharged? Hospital course, mention meds given and route, prescriptions, significant lab abnormalities, going to OR and other pertinent info. @ -The patient was seen and evaluated emergency department. Physical exam, the patient was resting in bed without any acute distress. Vital signs were stable. The patient was offered a headache cocktail however stated that she only wanted IM injections and stated that all she needed at this time. The patient was given Decadron, Reglan and Toradol IM and stated that she was good to be discharged back home. I did agree with this and the patient remained stable. The patient was discharged back home in stable condition. The patient was also advised that she could take Benadryl when she returned home as she was driving home herself. The patient was agreeable to this and all her questions were answered. The patient was discharged home in stable condition. Undiagnosed new problem with uncertain prognosis? @ -No Drug Therapy requiring intensive monitoring for toxicity (Heparin, Nitro, Insulin, Cardizem)? @ -No Were any procedures done? @ -No Diagnosis/symptom? @ -Headache, NOS Acute, or Chronic, or Acute on Chronic? @ -Acute on chronic Uncomplicated (without systemic symptoms) or Complicated (systemic symptoms)? @ -Uncomplicated Side effects of treatment? @ -No Exacerbation, Progression, or Severe Exacerbation? @ -No Poses a threat to life or bodily function? How? (Chest pain, [place], [place], pneumonia, PE, COPD, DKA, ARF, appy, cholecystitis, CVA, Diverticulitis, Homicidal, Suicidal, threat to staff... and all critical care pts) @ -No Disposition Clinical Impression: Migraine Disposition: HOME SELF-CARE Condition: Stable Instructions (If sedation given, give patient instructions): Acute Headache (ED) Is patient prescribed a controlled substance at d/c from ED?: No Referrals: Breanna Mcguire MD [Primary Care Provider] - 1-2 days Time of Disposition: 02:35
== END 2022-11-06 02:51 | disposition home or self-care (01) ==
LOC: EC 01:46
DX: G43.909 Migraine, unspecified, not intractable, without status migrainosus (principal); J45.909 Unspecified asthma, uncomplicated; K21.9 Gastro-esophageal reflux disease without esophagitis; I10 Essential (primary) hypertension; F41.9 Anxiety disorder, unspecified; F31.9 Bipolar disorder, unspecified; F17.200 Nicotine dependence, unspecified, uncomplicated; F12.90 Cannabis use, unspecified, uncomplicated; Z88.8 Allergy status to other drugs, medicaments and biological substances; Z79.899 Other long term (current) drug therapy
CPT/HCPCS: 99283; 96372 ×3; J1100; J2765; J1885

== ENCOUNTER 2023-02-25 09:40 | Emergency (ER) | payer OTHER, BC ==
[2023-02-25 09:45] VITALS: BP 140/76; PULSE 97; RESP 18; TEMP 97.8
--- NOTE | 2023-02-25 10:04 | ED ---
General Adult HPI - General Chief complaint: Recheck/Abnormal Lab/Rx Stated complaint: [facility] - lt arm injury Time Seen by Provider: 02/25/23 09:46 Source: patient, RN notes reviewed, old records reviewed Mode of arrival: ambulatory Limitations: no limitations - History of Present Illness Initial comments: 37-year-old female with left shoulder pain. Patient was seen at outside hospital for evaluation of shoulder pain after a work related injury. She had x-rays performed which did not show any acute bony abnormality according to the patient. She was referred to her primary care physician who recommended MRI. She's had no repeat injury but has had continued pain in the left shoulder. Patient has been wearing a sling and taking oral pain medications without significant relief. She has not followed with orthopedics regarding this injury at this point. - Related Data Home Medications Medication Instructions Recorded Confirmed ALPRAZolam [Xanax] 0.5 mg PO QID PRN 03/31/14 03/26/19 ARIPiprazole [Abilify] 15 mg PO DAILY 08/01/14 03/26/19 Hydrocodone/Acetaminophen 1 tab PO QID PRN 08/13/14 03/26/19 [Hydrocodon-Acetaminoph 7.5-325] Omeprazole [PriLOSEC] 20 mg PO BID PRN 08/13/14 03/26/19 Citalopram Hydrobromide [CeleXA] 30 mg PO DAILY 01/30/16 03/26/19 Albuterol Inhaler [Ventolin Hfa 2 puff INHALATION RT-Q6H PRN 09/11/16 03/26/19 Inhaler] diphenhydrAMINE HCL [Benadryl] 50 mg PO BID PRN 09/12/16 03/26/19 SUMAtriptan succinate [Imitrex] 25 mg PO BID PRN 11/14/16 03/26/19 Ibuprofen [Motrin Ib] 400 mg PO Q6H PRN 03/26/19 03/26/19 Topiramate [Trokendi Xr] 25 mg PO DAILY 03/26/19 03/26/19 Previous Rx's Medication Instructions Recorded Ibuprofen [Motrin] 600 mg PO Q8HR PRN #20 tab 12/07/19 Allergies Allergy/AdvReac Type Severity Reaction Status Date / Time varenicline [From Chantix] Allergy Rash/Hives Verified 02/25/23 09:45 bupropion HCl AdvReac Nausea & Verified 02/25/23 09:45 [From Wellbutrin] Vomiting desvenlafaxine [From Pristiq] AdvReac Confusion Verified 02/25/23 09:45 Review of Systems ROS Statement: Those systems with pertinent positive or pertinent negative responses have been documented in the HPI. ROS Other: All systems not noted in ROS Statement are negative. Past Medical History Past Medical History: Asthma, GERD/Reflux, Hypertension Additional Past Medical History / Comment(s): OVARIAN CYSTS, migraines, back pain, bipolar History of Any Multi-Drug Resistant Organisms: None Reported Past Surgical History: Section, Cholecystectomy, Tubal Ligation Past Psychological History: Anxiety, Bipolar, Depression Smoking Status: Current every day smoker Past Alcohol Use History: None Reported Past Drug Use History: None Reported, Marijuana General Exam Limitations: no limitations General appearance: alert, in no apparent distress Head exam: Present: atraumatic, normocephalic Eye exam: Present: normal appearance, PERRL ENT exam: Present: normal exam Neck exam: Present: normal inspection. Absent: tenderness, meningismus Respiratory exam: Present: normal lung sounds bilaterally. Absent: respiratory distress Cardiovascular Exam: Present: regular rate, normal rhythm GI/Abdominal exam: Present: soft. Absent: distended, tenderness Extremities exam: Present: other (Limited range of motion of left shoulder, no deformity noted, patient does have pain over the deltoid and the before meals joint. His pulses intact, normal medical insurance clerk strength.) Course Vital Signs 02/25/23 09:41 Temperature 97.8 F Pulse Rate 97 Respiratory 18 Rate Blood Pressure 140/76 O2 Sat by Pulse 100 Oximetry Medical Decision Making - Medical Decision Making Was pt. sent in by a medical professional or institution (, PA, REDUCTION PLANT SUPERVISOR, urgent care, hospital, or prison...) When possible be specific @ -No Did you speak to anyone other than the patient for history (EMS, parent, family, police, friend...)? What history was obtained from this source @ -No Did you review nursing and triage notes (agree or disagree)? Why? @ -I reviewed and agree with nursing and triage notes Were old charts reviewed (outside hosp., previous admission, EMS record, old EKG, old radiological studies, urgent care reports/EKG's, prison records)? Report findings @ -No old charts were reviewed Differential Diagnosis (chest pain, altered mental status, abdominal pain women, abdominal pain men, vaginal bleeding, weakness, fever, dyspnea, syncope, headache, dizziness, GI bleed, back pain, seizure, CVA, palpatations, mental health, musculoskeletal)? @ -Muscle skeletal: Muscle strain, muscle tear, ligamentous or tendon injury of the shoulder. Rotator cuff injury. AC separation. EKG interpreted by me (3pts min.). @ -As above X-rays interpreted by me (1pt min.). @ -None done CT interpreted by me (1pt min.). @ -None done U/S interpreted by me (1pt. min.). @ -None done What testing was considered but not performed or refused? (CT, X-rays, U/S, labs)? Why? @ -None What meds were considered but not given or refused? Why? @ -None Did you discuss the management of the patient with other professionals (professionals i.e. , PA, REDUCTION PLANT SUPERVISOR, lab, RT, psych nurse, high school social studies tutor, extrusion bender, teacher, bank secrecy act officer, casework specialist)? Give summary @ -No Was smoking cessation discussed for >3mins.? @ -No Was critical care preformed (if so, how long)? @ -No Were there social determinants of health that impacted care today? How? (Homelessness, low income, unemployed, alcoholism, drug addiction, transportation, low edu. Level, literacy, decrease access to med. care, penitentiary, rehab)? @ -No Was there de-escalation of care discussed even if they declined (Discuss DNR or withdrawal of care, Hospice)? DNR status @ -No What co-morbidities impacted this encounter? (DM, HTN, Smoking, COPD, CAD, Cancer, CVA, ARF, Chemo, Hep., AIDS, mental health diagnosis, sleep apnea, morbid obesity)? @ -None Was patient admitted / discharged? Hospital course, mention meds given and route, prescriptions, significant lab abnormalities, going to OR and other pertinent info. @ 37-year-old female with continued left shoulder pain after a work-related injury. I do recommend this patient receive MRI as an outpatient. Also recommend orthopedic follow-up at this time. She will continue sling and pain medications as prescribed. Undiagnosed new problem with uncertain prognosis? @ -No Drug Therapy requiring intensive monitoring for toxicity (Heparin, Nitro, Insulin, Cardizem)? @ -No Were any procedures done? @ -No Diagnosis/symptom? @ -Shoulder strain Acute, or Chronic, or Acute on Chronic? @ Acute Disposition Clinical Impression: Shoulder sprain Disposition: HOME SELF-CARE Condition: Fair Instructions (If sedation given, give patient instructions): Shoulder Sprain (ED) Additional Instructions: Recommend outpatient evaluation including MRI and orthopedic consultation. Is patient prescribed a controlled substance at d/c from ED?: No Referrals: Breanna Mcguire MD [Primary Care Provider] - 1-2 days Vanessa Hairston DO [Doctor of Osteopathic Medicine] - 1-2 days Time of Disposition: 10:04
== END 2023-02-25 10:32 | disposition home or self-care (01) ==
LOC: EC 09:40
DX: S43.402A Unspecified sprain of left shoulder joint, initial encounter (principal); J45.909 Unspecified asthma, uncomplicated; I10 Essential (primary) hypertension; F41.9 Anxiety disorder, unspecified; F31.9 Bipolar disorder, unspecified; F17.200 Nicotine dependence, unspecified, uncomplicated; F12.90 Cannabis use, unspecified, uncomplicated; K21.9 Gastro-esophageal reflux disease without esophagitis; Z88.8 Allergy status to other drugs, medicaments and biological substances; Z79.899 Other long term (current) drug therapy; X58.XXXA Exposure to other specified factors, initial encounter; Y99.0 Civilian activity done for income or pay
CPT/HCPCS: 99283

== ENCOUNTER 2023-03-03 21:00 | Emergency (ER) | payer BC, OTHER ==
[2023-03-03 21:08] VITALS: BP 124/85; PULSE 77; TEMP 98.1
[2023-03-03] MEDS ORDERED: ONDANSETRON 4 MG/2 ML VIAL IVP STA (21:33)
[2023-03-03] MEDS ORDERED: diphenhydrAMINE 50 MG/ML 1 ML VIAL IVP STA (21:33)
[2023-03-03] MEDS ORDERED: SODIUM CHLORIDE 0.9% 1,000 ML IV STA (21:33)
[2023-03-03] MEDS ORDERED: KETOROLAC 15 MG/ML 1 ML VIAL IVP STA (21:33)
--- NOTE | 2023-03-03 21:37 | ED ---
General Adult HPI - General Chief complaint: Headache Stated complaint: migraine Time Seen by Provider: 03/03/23 21:09 Source: patient Mode of arrival: ambulatory Limitations: no limitations - History of Present Illness Initial comments: Dictation was produced using [employer] dictation software. please excuse any grammatical, word or spelling errors. Chief Complaint: 37-year-old female presents emergency department for 2 days migraine History of Present Illness: 37-year-old female presents emergency department for migraine. Patient states that her migraine has been ongoing for 48 hours. Patient has history of migraines. She does not know what triggered at this time. States that physically usual symptoms. She will ice headache to afford area. It is throbbing in nature. Another facility paresthesias to the arms or legs. The ROS documented in this emergency department record has been reviewed and confirmed by me. Those systems with pertinent positive or negative responses have been documented in the HPI. All other systems are other negative and/or noncontributory. - Related Data Home Medications Medication Instructions Recorded Confirmed ALPRAZolam [Xanax] 0.5 mg PO QID PRN 03/31/14 03/26/19 ARIPiprazole [Abilify] 15 mg PO DAILY 08/01/14 03/26/19 Hydrocodone/Acetaminophen 1 tab PO QID PRN 08/13/14 03/26/19 [Hydrocodon-Acetaminoph 7.5-325] Omeprazole [PriLOSEC] 20 mg PO BID PRN 08/13/14 03/26/19 Citalopram Hydrobromide [CeleXA] 30 mg PO DAILY 01/30/16 03/26/19 Albuterol Inhaler [Ventolin Hfa 2 puff INHALATION RT-Q6H PRN 09/11/16 03/26/19 Inhaler] diphenhydrAMINE HCL [Benadryl] 50 mg PO BID PRN 09/12/16 03/26/19 SUMAtriptan succinate [Imitrex] 25 mg PO BID PRN 11/14/16 03/26/19 Ibuprofen [Motrin Ib] 400 mg PO Q6H PRN 03/26/19 03/26/19 Topiramate [Trokendi Xr] 25 mg PO DAILY 03/26/19 03/26/19 Previous Rx's Medication Instructions Recorded Ibuprofen [Motrin] 600 mg PO Q8HR PRN #20 tab 12/07/19 Allergies Allergy/AdvReac Type Severity Reaction Status Date / Time varenicline [From Chantix] Allergy Rash/Hives Verified 02/25/23 09:45 bupropion HCl AdvReac Nausea & Verified 02/25/23 09:45 [From Wellbutrin] Vomiting desvenlafaxine [From Pristiq] AdvReac Confusion Verified 02/25/23 09:45 Review of Systems ROS Statement: Those systems with pertinent positive or pertinent negative responses have been documented in the HPI. ROS Other: All systems not noted in ROS Statement are negative. Past Medical History Past Medical History: Asthma, GERD/Reflux, Hypertension Additional Past Medical History / Comment(s): OVARIAN CYSTS, migraines, back pain, bipolar History of Any Multi-Drug Resistant Organisms: None Reported Past Surgical History: Section, Cholecystectomy, Tubal Ligation Past Psychological History: Anxiety, Bipolar, Depression Smoking Status: Current every day smoker Past Alcohol Use History: None Reported Past Drug Use History: None Reported, Marijuana General Exam - General Exam Comments Initial Comments: PHYSICAL EXAM: General Impression: Alert and oriented x3, not in acute distress HEENT: Normocephalic atraumatic, extra-ocular movements intact, pupils equal and reactive to light bilaterally, mucous membranes moist. Cardiovascular: Heart regular rate and rhythm Chest: Able to complete full sentences, no retractions, no tachypnea Abdomen: abdomen soft, non-tender, non-distended, no organomegaly Musculoskeletal: Pulses present and equal in all extremities, no peripheral edema Motor: no focal deficits noted Neurological: CN II-XII grossly intact, no focal motor or sensory deficits noted Skin: Intact with no visualized rashes Psych: Normal affect and mood Limitations: no limitations Course Vital Signs 03/03/23 03/03/23 21:05 22:32 Temperature 98.1 F Pulse Rate 77 Respiratory 16 18 Rate Blood Pressure 124/85 O2 Sat by Pulse 98 Oximetry Medical Decision Making - Medical Decision Making Was pt. sent in by a medical professional or institution (, PA, OPERATIONS LOGISTICS ANALYST, urgent care, hospital, or senior care...) When possible be specific @ -No Did you speak to anyone other than the patient for history (EMS, parent, family, police, friend...)? What history was obtained from this source @ -No Did you review nursing and triage notes (agree or disagree)? Why? @ -I reviewed and agree with nursing and triage notes Were old charts reviewed (outside hosp., previous admission, EMS record, old EKG, old radiological studies, urgent care reports/EKG's, senior care records)? Report findings @ -No old charts were reviewed Differential Diagnosis (chest pain, altered mental status, abdominal pain women, abdominal pain men, vaginal bleeding, musculoskeletal, weakness, fever, dyspnea, syncope, headache, dizziness, GI bleed, back pain, seizure, CVA, palpatations, mental health)? @ -Differential Headache: Migraine, tension, cluster, carbon monoxide, central venous thrombosis, pension karma temporal arteritis, acute closure glaucoma, intercranial hemorrhage, mastoiditis, sinusitis, head injury, this is not meant to be an all-inclusive list. EKG interpreted by me (3pts min.). @ -None done X-rays interpreted by me (1pt min.). @ -None done CT interpreted by me (1pt min.). @ -None done U/S interpreted by me (1pt. min.). @ -None done What testing was considered but not performed or refused? (CT, X-rays, U/S, labs)? Why? @ -None What meds were considered but not given or refused? Why? @ -None Did you discuss the management of the patient with other professionals (professionals i.e. , PA, OPERATIONS LOGISTICS ANALYST, lab, RT, psych nurse, social staff worker, training and development coordinator, teacher, systems support officer, porter sample case)? Give summary @ -No Was smoking cessation discussed for >3mins.? @ -No Was critical care preformed (if so, how long)? @ -No Were there social determinants of health that impacted care today? How? (Homelessness, low income, unemployed, alcoholism, drug addiction, transportation, low edu. Level, literacy, decrease access to med. care, [facility], rehab)? @ -No Was there de-escalation of care discussed even if they declined (Discuss DNR or withdrawal of care, Hospice)? DNR status @ -No What co-morbidities impacted this encounter? (DM, HTN, Smoking, COPD, CAD, Cancer, CVA, ARF, Chemo, Hep., AIDS, mental health diagnosis, sleep apnea, morbid obesity)? @ -None Was patient admitted / discharged? Hospital course, mention meds given and route, prescriptions, significant lab abnormalities, going to OR and other pertinent info. @ -37-year-old female presents emergency department for her migraine. Vital signs upon arrival are within acceptable limits. Patient has normal neurologic examination. Patient given headache cocktail. Observed in emergency department discharge. Reevaluated at 10:30 PM found with stable medical condition. Her headache is improved. Patient discharged Undiagnosed new problem with uncertain prognosis? @ -No Drug Therapy requiring intensive monitoring for toxicity (Heparin, Nitro, Insulin, Cardizem)? @ -No Were any procedures done? @ -No Diagnosis/symptom? Acute, or Chronic, or Acute on Chronic? Uncomplicated (without systemic symptoms) or Complicated (systemic symptoms)? @ -1. Acute uncomplicated migraine Side effects of treatment? @ -No Exacerbation, Progression, or Severe Exacerbation? @ -No Poses a threat to life or bodily function? How? (Chest pain, [place], [place], pneumonia, PE, COPD, DKA, ARF, appy, cholecystitis, CVA, Diverticulitis, Homicidal, Suicidal, threat to staff... and all critical care pts) @ -No Disposition Clinical Impression: Migraine Disposition: HOME SELF-CARE Condition: Good Instructions (If sedation given, give patient instructions): Acute Headache (ED) Is patient prescribed a controlled substance at d/c from ED?: No Referrals: Breanna Mcguire MD [Primary Care Provider] - 1-2 days Time of Disposition: 22:39
[2023-03-03 22:33] VITALS: RESP 18
== END 2023-03-03 22:50 | disposition home or self-care (01) ==
LOC: EC 21:00
DX: G43.909 Migraine, unspecified, not intractable, without status migrainosus (principal); I10 Essential (primary) hypertension; J45.909 Unspecified asthma, uncomplicated; K21.9 Gastro-esophageal reflux disease without esophagitis; F41.9 Anxiety disorder, unspecified; F31.9 Bipolar disorder, unspecified; F17.200 Nicotine dependence, unspecified, uncomplicated; F12.90 Cannabis use, unspecified, uncomplicated; Z79.899 Other long term (current) drug therapy; Z88.8 Allergy status to other drugs, medicaments and biological substances; Z90.49 Acquired absence of other specified parts of digestive tract
CPT/HCPCS: 99283; 96374; 96375; 96361; J2405; J1885

== ENCOUNTER → 2025-03-01 | Outpatient (CLI) | payer OTHER ==
--- NOTE | 2025-03-01 10:09 | MR ---
EXAMINATION TYPE: MR lumbar spine wo/w con DATE OF EXAM: 03/01/2025 9:39 AM COMPARISON: MRI lumbar spine 02/10/2021, 03/20/2018, lumbar spine radiograph 02/06/2021, 08/22/2015 CLINICAL INDICATION: Female, 39 years old with history of M54.50 LOW BACK PAIN, UNSPECIFIED R94.31 AB N EKG, Lower back pain, BLE radiculopathy. IV Contrast: 8 cc Gadobutrol (None if empty) TECHNIQUE: Multiplanar, multisequence images of the lumbar spine were acquired without and with 8 mL intravenous Gadobutrol gadolinium contrast. FINDINGS: Alignment: The lumbar vertebral bodies have preserved heights and alignment. Cord: The conus medullaris and the distal spinal cord appear unremarkable with regards to their signa l intensity and morphology. Bones/Discs: Bone signal is within normal limits. Anterior osteophytosis at L2-L3. No abnormal STIR s ignal. Minimal multilevel disc desiccation. L1-L2: No significant disc pathology. Spinal canal is patent. The neural foramen are patent. L2-L3: No significant disc pathology. Spinal canal is patent. The neural foramen are patent. L3-L4: No significant disc pathology. Spinal canal is patent. The neural foramen are patent. L4-L5: Minimal broad-based disc bulge without significant central canal stenosis. No significant neur al foraminal stenosis. L5-S1: The disc is round along this posterior without evidence for herniation or significant central canal stenosis. No neural foraminal stenosis. Other findings: None. IMPRESSION: 1. No definitive evidence of disc herniation or significant spinal canal stenosis. No significant ne ural foraminal stenosis. No abnormal contrast enhancement. 2. 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 [facility], , 03/01/2025 10:07 AM
== END | disposition home or self-care (01) ==
LOC: RADMRIMAIN 08:50
PROVIDERS: ATTEND Family Medicine
DX: M51.16 Intervertebral disc disorders with radiculopathy, lumbar region (principal); R94.31 Abnormal electrocardiogram [ECG] [EKG]
CPT/HCPCS: 72158; A9585